=== PATIENT | female | born 1975 | race African-American/Black ===

== ENCOUNTER 2019-04-23 15:32 | Inpatient (IN) | payer MEDICAID ==
[~2019-04-23] VITALS: Ht 177.8 cm; Wt 135.2 kg
[~2019-04-23 15:32] MED LIST: GABA100C
[2019-04-23] MEDS ORDERED: IPRATROPIUM BROMIDE (0.02%) 0.5MG/2.5ML NEB HHN STA (15:51)
[2019-04-23] MEDS ORDERED: ALBUTEROL (0.083%) 2.5MG/3ML NEB HHN STA (15:51)
[2019-04-23] MEDS ORDERED: NITROGLYCERIN OINT 1GM/INCH UDPKT TD ONE (16:00)
[2019-04-23] MEDS ORDERED: FUROSEMIDE 40MG/4ML VIAL IV ONE (16:00)
[2019-04-23] MEDS ORDERED: ASPIRIN 81MG TABLET PO ONE (16:00)
[2019-04-23 16:23] LABS: BASOPHILS % 0.6 % (0.0-2.0); EOSINOPHILS % 3.9 % (0.0-5.0); HEMATOCRIT. 34.1 % (36.0-48.0); HEMOGLOBIN. 11.5 g/dL (12.0-16.0); LYMPHOCYTES % 22.3 % (20.0-50.0); MEAN CORPUSCULAR HEMOGLOBIN 27.4 pg (28.0-32.0); MEAN CORPUSCULAR VOLUME 81.3 fL (81.0-99.0); MEAN PLATELET VOLUME 8.7 fl (7.4-10.4); MONOCYTES % 6.6 % (2.0-8.0); NEUTROPHILS % 66.6 % (40.0-76.0); PLATELET 193 x1000/uL (130-400); RED CELL DISTRIBUTION WIDTH 17.5 % (11.6-14.6)
[2019-04-23 16:26] LABS: HCG SCREEN NEGATIVE
[2019-04-23 16:28] LABS: CHLORIDE 106 mEq/L (98-107)
[2019-04-23 16:29] LABS: CLARITY URINE CLOUDY (CLEAR); COLOR URINE YELLOW (YELLOW); KETONES URINE NEGATIVE (NEGATIVE); LEUKOCYTE ESTERASE URINE 1+ (NEGATIVE); NITRITE URINE NEGATIVE (NEGATIVE); OCCULT BLOOD URINE 1+ (NEGATIVE); PROTEIN URINE NEGATIVE (NEGATIVE); SPECIFIC GRAVITY URINE 1.015 (1.005-1.030); UROBILINOGEN URINE 0.2 E.U./dL (0.2-1.0)
[2019-04-23 16:32] LABS: ETHANOL BLOOD < 10 mg/dL
[2019-04-23 16:58] LABS: *BARBITURATES SCREEN URINE NEGATIVE (NEGATIVE); *BENZODIAZEPINES SCREEN URINE NEGATIVE (NEGATIVE)
[2019-04-23 16:59] LABS: *AMPHETAMINES SCREEN URINE PRESUMTIVE POSITIVE (NEGATIVE); *COCAINE SCREEN URINE PRESUMTIVE POSITIVE (NEGATIVE); CANNABINOID URINE SCREEN NEGATIVE (NEGATIVE); METHADONE URINE SCREEN NEGATIVE (NEGATIVE); OPIATES URINE SCREEN NEGATIVE (NEGATIVE); PHENCYCLIDINE URINE SCREEN NEGATIVE (NEGATIVE)
[2019-04-23] MEDS ORDERED: CEFTRIAXONE 1 G PREMIX 50 ML IV ONE (17:00)
[2019-04-23] MEDS ORDERED: MAGNESIUM/ALUMINUM HYDROXIDE/SIMETHICONE 30ML UDC PO PRN (18:15)
[2019-04-23] MEDS ORDERED: CLONIDINE 0.1MG TABLET PO PRN (18:15)
[2019-04-23] MEDS ORDERED: ONDANSETRON HCL 4MG/2ML INJ IV PRN (18:15)
[2019-04-23] MEDS ORDERED: DIPHENHYDRAMINE 50MG/ML VIAL IV PRN (18:15)
[2019-04-23] MEDS ORDERED: CEFTRIAXONE 1 G PREMIX 50 ML IV SCH (18:15)
[2019-04-23] MEDS ORDERED: GUAIFENESIN 200MG/10ML SUGAR FREE UDC PO PRN (18:15)
[2019-04-23] MEDS ORDERED: ACETAMINOPHEN 325MG TABLET PO PRN (18:15)
[2019-04-23] MEDS ORDERED: ENOXAPARIN 40MG/0.4ML SYR SUBCUT SCH (18:15)
[2019-04-23] MEDS ORDERED: DOCUSATE SODIUM 100MG CAPSULE PO PRN (18:15)
[2019-04-23] MEDS ORDERED: HYDROCODONE/ACETAMINOPHEN 5/325MG TABLET PO PRN (18:15)
[2019-04-23 18:45] LABS: PHOSPHORUS 3.4 mg/dL (2.5-4.9)
[2019-04-23 20:00] VITALS: BP 135/79
[2019-04-23 20:30] VITALS: BP 135/79
[2019-04-23] MEDS: ENOXAPARIN 30MG/0.3ML SYR SUBCUT SCH (21:14)
[2019-04-23] MEDS: IPRATROPIUM/ALBUTEROL 0.5-3(2.5)MG/3ML NEB HHN PRN (22:46)
[2019-04-24] VITALS (11 sets, daily range): BP systolic 106–153; BP diastolic 59–109
[2019-04-24 06:46] LABS: BASOPHILS % 0.5 % (0.0-2.0); EOSINOPHILS % 4.4 % (0.0-5.0); HEMATOCRIT. 32.6 % (36.0-48.0); HEMOGLOBIN. 11.1 g/dL (12.0-16.0); LYMPHOCYTES % 25.2 % (20.0-50.0); MEAN CORPUSCULAR HEMOGLOBIN 27.1 pg (28.0-32.0); MONOCYTES % 7.7 % (2.0-8.0); NEUTROPHILS % 62.2 % (40.0-76.0); PLATELET 184 x1000/uL (130-400); RED BLOOD CELL COUNT 4.08 mill/uL (4.2-5.4); RED CELL DISTRIBUTION WIDTH 17.2 % (11.6-14.6)
[2019-04-24 07:07] LABS: CHLORIDE 105 mEq/L (98-107)
[2019-04-24 07:14] LABS: LDL CHOLESTEROL 78 mg/dL (5-100)
[2019-04-24 07:16] LABS: HDL CHOLESTEROL 52 mg/dL (40-59)
[2019-04-24] MEDS: ENOXAPARIN 30MG/0.3ML SYR SUBCUT SCH ×2 (08:30→20:12)
[2019-04-24] MEDS: IPRATROPIUM/ALBUTEROL 0.5-3(2.5)MG/3ML NEB HHN PRN (11:09)
[2019-04-24] MEDS ORDERED: CEFTRIAXONE 1 G PREMIX 50 ML IV SCH (11:15)
[2019-04-24] MEDS ORDERED: METHYLPREDNISOLONE SOD SUCC 125 MG/2 ML VIAL IV NR (11:15)
[2019-04-24] MEDS: FUROSEMIDE 40MG/4ML VIAL IVP SCH ×2 (11:20→16:50)
[2019-04-24] MEDS ORDERED: IPRATROPIUM/ALBUTEROL 0.5-3(2.5)MG/3ML NEB HHN SCH (12:00)
[2019-04-24] MEDS ORDERED: POTASSIUM CHLORIDE INJ 40 MEQ in DEXT 5% WATER 500 ML IV NR (12:00)
[2019-04-24] MEDS ORDERED: MAGNESIUM 2 G PREMIX 50 ML IV NR (12:00)
[2019-04-24] MEDS: DILTIAZEM HCL 30MG TABLET PO SCH ×3 (12:18→23:54)
[2019-04-24] MEDS: METHYLPREDNISOLONE SOD SUCC 125 MG/2 ML VIAL IV SCH ×4 (12:18→23:55)
[2019-04-24] MEDS: AZITHROMYCIN 500 MG in DEXT 5% WATER 250 ML IV SCH (12:41)
[2019-04-24 12:57] LABS: BG BASE EXCESS 3.2 mmol/L (-2.0-2.0); BG CARBOXYHEMOGLOBIN 0.3 % (0.5-1.5); BG DEOXYHEMOGLOBIN 1.6 % (0.0-5.0); BG FRACTION INSPIRED OXYGEN 36; BG HCO3 ACT 26.3 mmol/L (22.0-26.0); BG METHEMOGLOBIN 0.1 % (0.0-1.5); BG OXYGEN SATURATION 98.4 % (92.0-98.5); BG PH 7.494 (7.350-7.450); BG PO2 122.7 mmHg (75.0-100.0); BG SAMPLE SITE RIGHT RADIAL; BG TOTAL HEMOGLOBIN 12.6 g/dL (12.0-18.0); BG VENT MODE NASAL CANNULA
[2019-04-24] MEDS: IPRATROPIUM/ALBUTEROL 0.5-3(2.5)MG/3ML NEB HHN SCH ×3 (13:22→20:44)
[2019-04-24] MEDS: FLUTICASONE PROPIONATE 50MCG/SPRAY BOTTLE BOTHNSTRLS SCH ×2 (15:00→21:36)
[2019-04-24 15:44] LABS: D-DIMER 0.5 mg/L FEU (<0.50); PARTIAL THROMBOPLASTIN TIME 29.9 sec (23.4-31.0); PROTHROMBIN TIME 10.4 sec (9.6-11.0)
[2019-04-24] MEDS: FAMOTIDINE 20MG TABLET PO SCH (20:11)
[2019-04-24] MEDS: BUDESONIDE 0.5MG/2ML NEB HHN SCH (20:44)
[2019-04-24] MEDS: CEFTRIAXONE 1 G PREMIX 50 ML IV SCH (21:36)
[2019-04-25] VITALS (11 sets, daily range): BP systolic 127–156; BP diastolic 64–101
[2019-04-25] MEDS: IPRATROPIUM/ALBUTEROL 0.5-3(2.5)MG/3ML NEB HHN SCH ×6 (00:46→21:33)
[2019-04-25] MEDS: DILTIAZEM HCL 30MG TABLET PO SCH ×2 (05:04→11:31)
[2019-04-25] MEDS: METHYLPREDNISOLONE SOD SUCC 125 MG/2 ML VIAL IV SCH ×4 (05:04→23:34)
[2019-04-25 07:05] LABS: HEMATOCRIT. 37.9 % (36.0-48.0); HEMOGLOBIN. 12.8 g/dL (12.0-16.0); MEAN CORPUSCULAR HEMOGLOBIN 27.2 pg (28.0-32.0); MEAN CORPUSCULAR VOLUME 80.3 fL (81.0-99.0); MEAN PLATELET VOLUME 9.1 fl (7.4-10.4); PLATELET 215 x1000/uL (130-400); RED BLOOD CELL COUNT 4.71 mill/uL (4.2-5.4); RED CELL DISTRIBUTION WIDTH 17.3 % (11.6-14.6)
[2019-04-25 07:44] LABS: CHLORIDE 101 mEq/L (98-107)
[2019-04-25 07:51] LABS: TOTAL IRON BINDING CAPACITY 393 ug/dL (250-450)
[2019-04-25] MEDS: ENOXAPARIN 30MG/0.3ML SYR SUBCUT SCH (08:00)
[2019-04-25] MEDS: FUROSEMIDE 40MG/4ML VIAL IVP SCH ×2 (08:00→17:15)
[2019-04-25] MEDS: FAMOTIDINE 20MG TABLET PO SCH ×2 (08:00→21:30)
[2019-04-25] MEDS: FLUTICASONE PROPIONATE 50MCG/SPRAY BOTTLE BOTHNSTRLS SCH ×2 (08:02→21:29)
[2019-04-25] MEDS: BUDESONIDE 0.5MG/2ML NEB HHN SCH ×2 (09:03→21:30)
[2019-04-25] MEDS ORDERED: POTASSIUM CHLORIDE 20MEQ TABLET SR PO NR (10:00)
[2019-04-25 11:14] LABS: PLATELET ESTIMATE NORMAL
[2019-04-25] MEDS: AZITHROMYCIN 500 MG in DEXT 5% WATER 250 ML IV SCH (12:24)
[2019-04-25] MEDS: DILTIAZEM HCL 60MG TABLET PO SCH ×3 (14:32→21:31)
[2019-04-25] MEDS: CEFTRIAXONE 1 G PREMIX 50 ML IV SCH (17:00)
[2019-04-25] MEDS: ENOXAPARIN 40MG/0.4ML SYR SUBCUT SCH (21:30)
[2019-04-26] VITALS: BP 147/86
[2019-04-26] MEDS: IPRATROPIUM/ALBUTEROL 0.5-3(2.5)MG/3ML NEB HHN SCH ×4 (00:58→11:54)
[2019-04-26 04:00] VITALS: BP 133/76
[2019-04-26] MEDS: METHYLPREDNISOLONE SOD SUCC 125 MG/2 ML VIAL IV SCH ×2 (06:01→11:59)
[2019-04-26] MEDS: DILTIAZEM HCL 60MG TABLET PO SCH (06:06)
[2019-04-26] MEDS: FUROSEMIDE 40MG/4ML VIAL IVP SCH (06:15)
[2019-04-26] MEDS: BUDESONIDE 0.5MG/2ML NEB HHN SCH (07:34)
[2019-04-26 08:00] VITALS: BP 112/48
[2019-04-26] MEDS: FLUTICASONE PROPIONATE 50MCG/SPRAY BOTTLE BOTHNSTRLS SCH (08:31)
[2019-04-26] MEDS: FAMOTIDINE 20MG TABLET PO SCH (08:31)
[2019-04-26] MEDS: ENOXAPARIN 40MG/0.4ML SYR SUBCUT SCH (08:32)
[2019-04-26] MEDS ORDERED: AZITHROMYCIN 500 MG TABLET PO SCH (09:00)
[2019-04-26] MEDS ORDERED: AMLODIPINE 5MG TABLET PO SCH (11:00)
[2019-04-26 12:00] VITALS: BP 145/105
== END 2019-04-26 13:58 | disposition left against medical advice (07) | DRG 816 ==
LOC: ER 15:32 → 5WST 17:57 → EDBEDREQ 17:58 → EDBEDREQTM 17:58 → ENRESERV 19:38 → 3WST 04-24 12:27 → 5WST 04-25 12:00
PROVIDERS: ADMIT Internal Medicine; ATTEND Internal Medicine
DX: T40.5X1A Poisoning by cocaine, accidental (unintentional), initial encounter (principal); J96.00 Acute respiratory failure, unspecified whether with hypoxia or hypercapnia; I50.41 Acute combined systolic (congestive) and diastolic (congestive) heart failure; E66.01 Morbid (severe) obesity due to excess calories; E83.42 Hypomagnesemia; I42.9 Cardiomyopathy, unspecified; J44.1 Chronic obstructive pulmonary disease with (acute) exacerbation; J45.901 Unspecified asthma with (acute) exacerbation; J68.0 Bronchitis and pneumonitis due to chemicals, gases, fumes and vapors; F17.210 Nicotine dependence, cigarettes, uncomplicated; Z53.21 Procedure and treatment not carried out due to patient leaving prior to being seen by health care provider; J31.0 Chronic rhinitis; I11.0 Hypertensive heart disease with heart failure; N39.0 Urinary tract infection, site not specified; D50.9 Iron deficiency anemia, unspecified; E87.6 Hypokalemia; F14.10 Cocaine abuse, uncomplicated; F15.10 Other stimulant abuse, uncomplicated; Z68.41 Body mass index [BMI] 40.0-44.9, adult; Z79.899 Other long term (current) drug therapy; Z71.6 Tobacco abuse counseling; Y92.89 Other specified places as the place of occurrence of the external cause; Z71.51 Drug abuse counseling and surveillance of drug abuser
CPT/HCPCS: 36415; 36600; 71045; 80048; 80061; 80305; 80320; 81003; 82375; 82728; 82805; 83540; 83550; 83735; 83880; 84100; 84443; 84484; 84703; 85379; 93005; 93306; 93970; 94640; 99291; C1893; J0456; J0696; J1650; J1940; J2930; J3475; J3480; J7060; J7611; J7620; J7626; G0480

== ENCOUNTER 2019-04-26 16:16 | Inpatient (IN) | payer MEDICAID ==
[~2019-04-26] VITALS: Ht 177.8 cm; Wt 131.5 kg
[2019-04-26] MEDS ORDERED: MORPHINE SULFATE 4 MG/ML CPJ (NOT FOR IM USE) IV STA (17:08)
[2019-04-26] MEDS ORDERED: ONDANSETRON HCL 4MG/2ML INJ IV STA (17:08)
[2019-04-26] MEDS ORDERED: ASPIRIN 81MG TABLET PO ONE (17:15)
[2019-04-26] MEDS ORDERED: NITROGLYCERIN OINT 1GM/INCH UDPKT TD ONE (17:15)
[2019-04-26 17:19] LABS: HEMATOCRIT. 38.6 % (36.0-48.0); HEMOGLOBIN. 12.8 g/dL (12.0-16.0); MEAN CORPUSCULAR HEMOGLOBIN 26.7 pg (28.0-32.0); MEAN CORPUSCULAR VOLUME 80.8 fL (81.0-99.0); MEAN PLATELET VOLUME 8.8 fl (7.4-10.4); PLATELET 234 x1000/uL (130-400); RED BLOOD CELL COUNT 4.78 mill/uL (4.2-5.4); RED CELL DISTRIBUTION WIDTH 17.5 % (11.6-14.6)
[2019-04-26 17:24] LABS: CHLORIDE 102 mEq/L (98-107)
[2019-04-26 17:37] LABS: PLATELET ESTIMATE NORMAL
[2019-04-26] MEDS ORDERED: FUROSEMIDE 40MG/4ML VIAL IVP ONE (18:15)
[2019-04-26 19:42] LABS: *BARBITURATES SCREEN URINE NEGATIVE (NEGATIVE)
[2019-04-26 19:43] LABS: *AMPHETAMINES SCREEN URINE NEGATIVE (NEGATIVE); *BENZODIAZEPINES SCREEN URINE NEGATIVE (NEGATIVE); *COCAINE SCREEN URINE NEGATIVE (NEGATIVE); CANNABINOID URINE SCREEN NEGATIVE (NEGATIVE); METHADONE URINE SCREEN NEGATIVE (NEGATIVE); OPIATES URINE SCREEN NEGATIVE (NEGATIVE); PHENCYCLIDINE URINE SCREEN NEGATIVE (NEGATIVE)
[2019-04-26] MEDS ORDERED: CLONIDINE 0.1MG TABLET PO PRN (21:30)
[2019-04-26] MEDS ORDERED: ACETAMINOPHEN 325MG TABLET PO PRN ×2 (21:30)
[2019-04-26] MEDS ORDERED: IPRATROPIUM/ALBUTEROL 0.5-3(2.5)MG/3ML NEB NEB PRN (21:30)
[2019-04-26] MEDS ORDERED: ONDANSETRON HCL 4MG/2ML INJ IV PRN (21:30)
[2019-04-26 23:00] VITALS: BP 145/102
[2019-04-26] MEDS ORDERED: DEXTROSE 50% WATER 50ML SYRINGE IV PRN (23:45)
[2019-04-27] VITALS: BP 130/77
[2019-04-27 00:59] LABS: CLARITY URINE CLEAR (CLEAR); COLOR URINE YELLOW (YELLOW); KETONES URINE NEGATIVE (NEGATIVE); LEUKOCYTE ESTERASE URINE 1+ (NEGATIVE); NITRITE URINE NEGATIVE (NEGATIVE); OCCULT BLOOD URINE TRACE (NEGATIVE); PROTEIN URINE NEGATIVE (NEGATIVE); SPECIFIC GRAVITY URINE 1.019 (1.005-1.030); UROBILINOGEN URINE 0.2 E.U./dL (0.2-1.0)
[2019-04-27 04:00] VITALS: BP 117/57
[2019-04-27] MEDS: BLOOD SUGAR DIAGNOSTIC STRIP TEST SCH ×4 (06:21→21:00)
[2019-04-27] MEDS: INSULIN LISPRO 100 UNITS/ML SUBCUT SCH ×4 (06:22→21:00)
[2019-04-27 07:20] LABS: CHLORIDE 102 mEq/L (98-107)
[2019-04-27 07:28] LABS: HEMATOCRIT. 36.1 % (36.0-48.0); MEAN CORPUSCULAR HEMOGLOBIN 26.6 pg (28.0-32.0); MEAN CORPUSCULAR VOLUME 79.8 fL (81.0-99.0); MEAN PLATELET VOLUME 9.1 fl (7.4-10.4); PLATELET 220 x1000/uL (130-400); RED BLOOD CELL COUNT 4.52 mill/uL (4.2-5.4); RED CELL DISTRIBUTION WIDTH 17.2 % (11.6-14.6)
[2019-04-27 08:00] VITALS: BP 112/61
[2019-04-27] MEDS: FUROSEMIDE 40MG/4ML VIAL IVP SCH (08:49)
[2019-04-27] MEDS ORDERED: ENOXAPARIN 30MG/0.3ML SYR SUBCUT SCH (09:00)
[2019-04-27 12:00] VITALS: BP 117/77
[2019-04-27 16:00] VITALS: BP 137/84
[2019-04-27 20:00] VITALS: BP 135/82
[2019-04-27 20:35] LABS: PLATELET ESTIMATE NORMAL
[2019-04-27] MEDS: ENOXAPARIN 40MG/0.4ML SYR SUBCUT SCH (21:59)
[2019-04-27] MEDS ORDERED: CEFTRIAXONE 1 G PREMIX 50 ML IV SCH (22:00)
[2019-04-28] VITALS: BP 137/85
[2019-04-28 04:00] VITALS: BP 135/94
[2019-04-28] MEDS: INSULIN LISPRO 100 UNITS/ML SUBCUT SCH ×2 (06:45→12:14)
[2019-04-28] MEDS: BLOOD SUGAR DIAGNOSTIC STRIP TEST SCH ×2 (06:45→11:45)
[2019-04-28 08:00] VITALS: BP 108/60
[2019-04-28] MEDS: ENOXAPARIN 40MG/0.4ML SYR SUBCUT SCH (08:50)
[2019-04-28] MEDS: FUROSEMIDE 40MG/4ML VIAL IVP SCH (08:50)
[2019-04-28 12:00] VITALS: BP 106/55
[2019-04-28 14:35] VITALS: BP 106/55
== END 2019-04-28 16:15 | disposition home or self-care (01) | DRG 720 ==
LOC: ER 16:16 → 5WST 17:42 → EDBEDREQ 17:48 → ENRESERV 20:49
PROVIDERS: ADMIT Internal Medicine; ATTEND Internal Medicine
DX: A41.9 Sepsis, unspecified organism (principal); I50.23 Acute on chronic systolic (congestive) heart failure; F17.200 Nicotine dependence, unspecified, uncomplicated; I11.0 Hypertensive heart disease with heart failure; N39.0 Urinary tract infection, site not specified; J44.9 Chronic obstructive pulmonary disease, unspecified; Z90.710 Acquired absence of both cervix and uterus; Z90.49 Acquired absence of other specified parts of digestive tract; Z68.41 Body mass index [BMI] 40.0-44.9, adult
CPT/HCPCS: 36415; 71045; 80048; 80305; 81003; 82962; 83735; 83880; 84484; 93005; 93970; 99285; J0696; J1650; J1940; J2270; J2405; J7040

== ENCOUNTER 2019-05-04 09:31 | Inpatient (IN) | payer MEDICAID ==
[~2019-05-04] VITALS: Ht 175.3 cm; Wt 129.3 kg
[2019-05-04] MEDS ORDERED: IBUPROFEN 800MG TABLET PO ONE (10:00)
[2019-05-04] MEDS ORDERED: ALBUTEROL (0.5%) 2.5MG/0.5ML NEB HHN ONE (10:00)
[2019-05-04] MEDS ORDERED: METHYLPREDNISOLONE SOD SUCC 125 MG/2 ML VIAL IV STA (10:01)
[2019-05-04] MEDS ORDERED: ALBUTEROL (0.083%) 2.5MG/3ML NEB HHN STA (10:01)
[2019-05-04] MEDS ORDERED: MAGNESIUM 2 G PREMIX 50 ML IV STA (10:01)
[2019-05-04] MEDS ORDERED: IPRATROPIUM BROMIDE (0.02%) 0.5MG/2.5ML NEB HHN STA (10:01)
[2019-05-04 12:43] LABS: HEMATOCRIT. 34.8 % (36.0-48.0); HEMOGLOBIN. 11.7 g/dL (12.0-16.0); MEAN CORPUSCULAR HEMOGLOBIN 26.9 pg (28.0-32.0); MEAN CORPUSCULAR VOLUME 80.4 fL (81.0-99.0); MEAN PLATELET VOLUME 8.4 fl (7.4-10.4); PLATELET 156 x1000/uL (130-400); RED BLOOD CELL COUNT 4.33 mill/uL (4.2-5.4); RED CELL DISTRIBUTION WIDTH 16.8 % (11.6-14.6)
[2019-05-04 12:50] LABS: CHLORIDE 106 mEq/L (98-107)
[2019-05-04 13:12] LABS: PLATELET ESTIMATE NORMAL
[2019-05-04] MEDS ORDERED: FUROSEMIDE 40MG/4ML VIAL IVP ONE (13:45)
[2019-05-04] MEDS ORDERED: POTASSIUM CHLORIDE 20MEQ TABLET SR PO ONE (13:45)
[2019-05-04] MEDS ORDERED: DIPHENHYDRAMINE 50MG/ML VIAL IV PRN (14:00)
[2019-05-04] MEDS ORDERED: CLONIDINE 0.1MG TABLET PO PRN (14:00)
[2019-05-04] MEDS ORDERED: MAGNESIUM/ALUMINUM HYDROXIDE/SIMETHICONE 30ML UDC PO PRN (14:00)
[2019-05-04] MEDS ORDERED: ENOXAPARIN 40MG/0.4ML SYR SUBCUT SCH (14:00)
[2019-05-04] MEDS ORDERED: ONDANSETRON HCL 4MG/2ML INJ IV PRN (14:00)
[2019-05-04] MEDS ORDERED: ACETAMINOPHEN 325MG TABLET PO PRN (14:00)
[2019-05-04] MEDS ORDERED: IPRATROPIUM/ALBUTEROL 0.5-3(2.5)MG/3ML NEB HHN PRN (14:00)
[2019-05-04] MEDS ORDERED: DOCUSATE SODIUM 100MG CAPSULE PO PRN (14:00)
[2019-05-04 14:46] LABS: PHOSPHORUS 2.5 mg/dL (2.5-4.9)
[2019-05-04 17:01] LABS: BG BASE EXCESS -5.4 mmol/L (-2.0-2.0); BG CARBOXYHEMOGLOBIN 0.8 % (0.5-1.5); BG DEOXYHEMOGLOBIN 17.5 % (0.0-5.0); BG FRACTION INSPIRED OXYGEN 21; BG HCO3 ACT 19.8 mmol/L (22.0-26.0); BG METHEMOGLOBIN 0.2 % (0.0-1.5); BG OXYGEN SATURATION 82.3 % (92.0-98.5); BG OXYHEMOGLOBIN 81.5 % (94.0-97.0); BG PCO2 37.4 mmHg (35.0-45.0); BG PH 7.341 (7.350-7.450); BG PO2 44.4 mmHg (75.0-100.0); BG SAMPLE SITE RIGHT RADIAL; BG VENT MODE ROOM AIR
[2019-05-04] MEDS: IPRATROPIUM/ALBUTEROL 0.5-3(2.5)MG/3ML NEB HHN SCH (20:25)
[2019-05-04] MEDS ORDERED: METHYLPREDNISOLONE SOD SUCC 40 MG/ML VIAL IV NR (20:34)
[2019-05-04 21:30] VITALS: BP 140/87
[2019-05-04 22:30] VITALS: BP 140/87
[2019-05-04] MEDS: GUAIFENESIN 600MG ER TABLET PO SCH (23:00)
[2019-05-04] MEDS: GUAIFENESIN 200MG/10ML SUGAR FREE UDC PO PRN (23:00)
[2019-05-05] VITALS: BP 116/63
[2019-05-05] MEDS: IPRATROPIUM/ALBUTEROL 0.5-3(2.5)MG/3ML NEB HHN SCH ×6 (01:16→20:25)
[2019-05-05 04:00] VITALS: BP 154/88
[2019-05-05] MEDS: METHYLPREDNISOLONE SOD SUCC 40 MG/ML VIAL IV SCH ×3 (05:32→20:42)
[2019-05-05 07:38] LABS: HEMATOCRIT. 34.6 % (36.0-48.0); HEMOGLOBIN. 11.4 g/dL (12.0-16.0); MEAN CORPUSCULAR HEMOGLOBIN 26.8 pg (28.0-32.0); MEAN CORPUSCULAR VOLUME 81.1 fL (81.0-99.0); MEAN PLATELET VOLUME 9.3 fl (7.4-10.4); PLATELET 168 x1000/uL (130-400); RED BLOOD CELL COUNT 4.26 mill/uL (4.2-5.4); RED CELL DISTRIBUTION WIDTH 17.2 % (11.6-14.6)
[2019-05-05 08:01] LABS: CHLORIDE 107 mEq/L (98-107)
[2019-05-05] MEDS: GUAIFENESIN 600MG ER TABLET PO SCH ×2 (11:00→20:42)
[2019-05-05] MEDS: FUROSEMIDE 40MG/4ML VIAL IVP SCH (11:00)
[2019-05-05] MEDS: ENOXAPARIN 30MG/0.3ML SYR SUBCUT SCH ×2 (11:01→20:42)
[2019-05-05 12:39] LABS: CLARITY URINE CLEAR (CLEAR); COLOR URINE YELLOW (YELLOW); KETONES URINE NEGATIVE (NEGATIVE); LEUKOCYTE ESTERASE URINE 1+ (NEGATIVE); NITRITE URINE NEGATIVE (NEGATIVE); OCCULT BLOOD URINE TRACE (NEGATIVE); PH URINE 5.5 (4.5-8.0); PROTEIN URINE NEGATIVE (NEGATIVE); SPECIFIC GRAVITY URINE 1.018 (1.005-1.030)
[2019-05-05 13:12] LABS: *AMPHETAMINES SCREEN URINE NEGATIVE (NEGATIVE); *BARBITURATES SCREEN URINE NEGATIVE (NEGATIVE); *BENZODIAZEPINES SCREEN URINE NEGATIVE (NEGATIVE); METHADONE URINE SCREEN NEGATIVE (NEGATIVE); OPIATES URINE SCREEN NEGATIVE (NEGATIVE)
[2019-05-05 13:13] LABS: *COCAINE SCREEN URINE PRESUMTIVE POSITIVE (NEGATIVE); CANNABINOID URINE SCREEN NEGATIVE (NEGATIVE); PHENCYCLIDINE URINE SCREEN NEGATIVE (NEGATIVE)
[2019-05-05] MEDS: GUAIFENESIN 200MG/10ML SUGAR FREE UDC PO PRN ×2 (14:32→20:42)
[2019-05-05 20:00] VITALS: BP 132/99
[2019-05-06] VITALS: BP 147/95
[2019-05-06] MEDS: IPRATROPIUM/ALBUTEROL 0.5-3(2.5)MG/3ML NEB HHN SCH ×4 (00:28→12:41)
[2019-05-06] MEDS: METHYLPREDNISOLONE SOD SUCC 40 MG/ML VIAL IV SCH ×2 (05:58→14:16)
[2019-05-06] MEDS: FUROSEMIDE 40MG/4ML VIAL IVP SCH (08:57)
[2019-05-06] MEDS: ENOXAPARIN 30MG/0.3ML SYR SUBCUT SCH (08:57)
[2019-05-06] MEDS: GUAIFENESIN 600MG ER TABLET PO SCH (08:57)
[2019-05-06 09:27] LABS: HEMATOCRIT. 37.1 % (36.0-48.0); HEMOGLOBIN. 12.4 g/dL (12.0-16.0); MEAN CORPUSCULAR HEMOGLOBIN 26.7 pg (28.0-32.0); MEAN CORPUSCULAR VOLUME 79.7 fL (81.0-99.0); MEAN PLATELET VOLUME 8.9 fl (7.4-10.4); PLATELET 185 x1000/uL (130-400); RED BLOOD CELL COUNT 4.65 mill/uL (4.2-5.4); RED CELL DISTRIBUTION WIDTH 17.6 % (11.6-14.6)
[2019-05-06 09:56] LABS: CHLORIDE 105 mEq/L (98-107)
[2019-05-06] MEDS: GUAIFENESIN 200MG/10ML SUGAR FREE UDC PO PRN (10:06)
[2019-05-06 15:11] LABS: PLATELET ESTIMATE NORMAL
[2019-05-06 15:35] LABS: PLATELET ESTIMATE NORMAL
== END 2019-05-06 16:49 | disposition home or self-care (01) | DRG 133 ==
LOC: ER 09:31 → 7WST 11:48 → EDBEDREQ 11:51 → EDBEDREQTM 11:51 → ENRESERV 20:42
PROVIDERS: ADMIT Internal Medicine; ATTEND Internal Medicine
DX: J96.00 Acute respiratory failure, unspecified whether with hypoxia or hypercapnia (principal); J68.0 Bronchitis and pneumonitis due to chemicals, gases, fumes and vapors; J45.901 Unspecified asthma with (acute) exacerbation; E83.42 Hypomagnesemia; I11.0 Hypertensive heart disease with heart failure; I50.40 Unspecified combined systolic (congestive) and diastolic (congestive) heart failure; D50.9 Iron deficiency anemia, unspecified; R73.9 Hyperglycemia, unspecified; E87.6 Hypokalemia; J31.0 Chronic rhinitis; F17.210 Nicotine dependence, cigarettes, uncomplicated; Z90.710 Acquired absence of both cervix and uterus; Z90.49 Acquired absence of other specified parts of digestive tract; Z98.891 History of uterine scar from previous surgery; Z79.899 Other long term (current) drug therapy
CPT/HCPCS: 36415; 36600; 71045; 80048; 80305; 81003; 82375; 82805; 83735; 83880; 84100; 84484; 93005; 93970; 96374; 99285; J1650; J1940; J2920; J2930; J3475; J7611; J7620

== ENCOUNTER 2019-06-11 07:32 | Emergency (ER) | payer MEDICAID ==
[~2019-06-11] VITALS: Ht 162.6 cm; Wt 1174.0 kg
[2019-06-11] MEDS ORDERED: ASPIRIN 81MG TABLET PO ONE (08:00)
[2019-06-11 09:02] LABS: CLARITY URINE CLEAR (CLEAR); COLOR URINE YELLOW (YELLOW); KETONES URINE TRACE (NEGATIVE); LEUKOCYTE ESTERASE URINE 1+ (NEGATIVE); NITRITE URINE NEGATIVE (NEGATIVE); OCCULT BLOOD URINE 1+ (NEGATIVE); PROTEIN URINE NEGATIVE (NEGATIVE)
[2019-06-11 09:19] LABS: BASOPHILS % 0.2 % (0.0-2.0); HEMATOCRIT. 36.6 % (36.0-48.0); HEMOGLOBIN. 12.4 g/dL (12.0-16.0); LYMPHOCYTES % 17.7 % (20.0-50.0); MEAN CORPUSCULAR HEMOGLOBIN 27.1 pg (28.0-32.0); MEAN CORPUSCULAR VOLUME 79.9 fL (81.0-99.0); MEAN PLATELET VOLUME 8.4 fl (7.4-10.4); MONOCYTES % 6.8 % (2.0-8.0); NEUTROPHILS % 72.3 % (40.0-76.0); PLATELET 205 x1000/uL (130-400); RED BLOOD CELL COUNT 4.58 mill/uL (4.2-5.4); RED CELL DISTRIBUTION WIDTH 18.3 % (11.6-14.6)
[2019-06-11 09:25] LABS: CHLORIDE 104 mEq/L (98-107)
[2019-06-11 09:28] LABS: PARTIAL THROMBOPLASTIN TIME 28.5 sec (23.4-31.0); PROTHROMBIN TIME 10.4 sec (9.6-11.0)
[2019-06-11 13:14] VITALS: BP 141/84
== END 2019-06-11 13:16 | disposition home or self-care (01) ==
LOC: ER 07:32
DX: R07.9 Chest pain, unspecified (principal); M25.562 Pain in left knee; M25.561 Pain in right knee; W19.XXXA Unspecified fall, initial encounter; Y93.89 Activity, other specified; Y92.89 Other specified places as the place of occurrence of the external cause; Y99.8 Other external cause status
CPT/HCPCS: 36415; 71045; 80053; 81003; 84484; 85025; 85610; 85730; 93005; 99284; Z7610

== ENCOUNTER 2019-08-18 07:40 | Emergency (ER) | payer MEDICAID ==
[~2019-08-18] VITALS: Ht 167.6 cm; Wt 118.0 kg
[2019-08-18] MEDS ORDERED: KETOROLAC 30MG/ML VIAL IV STA (07:50)
[2019-08-18] MEDS ORDERED: SODIUM CHLORIDE 0.9% 1,000 ML IV ONE (07:50)
[2019-08-18] MEDS ORDERED: OLANZAPINE 5MG TABLET ODT PO ONE (08:30)
[2019-08-18] MEDS ORDERED: LORAZEPAM 1MG TABLET PO ONE (08:30)
[2019-08-18 08:34] LABS: BASOPHILS % 0.6 % (0.0-2.0); EOSINOPHILS % 4.9 % (0.0-5.0); HEMATOCRIT. 34.6 % (36.0-48.0); LYMPHOCYTES % 23.8 % (20.0-50.0); MEAN CORPUSCULAR HEMOGLOBIN 27.8 pg (28.0-32.0); MEAN CORPUSCULAR VOLUME 80.3 fL (81.0-99.0); MEAN PLATELET VOLUME 8.1 fl (7.4-10.4); MONOCYTES % 6.9 % (2.0-8.0); NEUTROPHILS % 63.8 % (40.0-76.0); PLATELET 175 x1000/uL (130-400); RED BLOOD CELL COUNT 4.31 mill/uL (4.2-5.4); RED CELL DISTRIBUTION WIDTH 18.1 % (11.6-14.6)
[2019-08-18 08:40] LABS: CHLORIDE 103 mEq/L (98-107)
[2019-08-18 08:44] LABS: ETHANOL BLOOD < 10 mg/dL
[2019-08-18 08:51] LABS: HCG SCREEN NEGATIVE
[2019-08-18 11:34] LABS: CLARITY URINE CLEAR (CLEAR); COLOR URINE YELLOW (YELLOW); KETONES URINE NEGATIVE (NEGATIVE); LEUKOCYTE ESTERASE URINE TRACE (NEGATIVE); NITRITE URINE NEGATIVE (NEGATIVE); OCCULT BLOOD URINE TRACE (NEGATIVE); PROTEIN URINE NEGATIVE (NEGATIVE)
[2019-08-18 12:06] LABS: *AMPHETAMINES SCREEN URINE NEGATIVE (NEGATIVE); *BARBITURATES SCREEN URINE NEGATIVE (NEGATIVE); *BENZODIAZEPINES SCREEN URINE NEGATIVE (NEGATIVE)
[2019-08-18 12:07] LABS: CANNABINOID URINE SCREEN NEGATIVE (NEGATIVE); METHADONE URINE SCREEN NEGATIVE (NEGATIVE); OPIATES URINE SCREEN NEGATIVE (NEGATIVE); PHENCYCLIDINE URINE SCREEN NEGATIVE (NEGATIVE)
[2019-08-18 12:09] LABS: *COCAINE SCREEN URINE PRESUMTIVE POSITIVE (NEGATIVE)
[2019-08-20] MEDS ORDERED: NITROFURANTOIN 100MG M/M CAPSULE PO ONE (19:30)
[2019-08-21] MEDS ORDERED: MAGNESIUM/ALUMINUM HYDROXIDE/SIMETHICONE 30ML UDC PO STA (15:24)
[2019-08-21] MEDS ORDERED: MAGNESIUM/ALUMINUM HYDROXIDE/SIMETHICONE 30ML UDC PO NR (15:45)
[2019-08-21 21:47] VITALS: BP 161/95
== END 2019-08-21 23:18 ==
LOC: ER 08:03
DX: F14.129 Cocaine abuse with intoxication, unspecified (principal); R07.89 Other chest pain; R45.851 Suicidal ideations; J45.909 Unspecified asthma, uncomplicated; I10 Essential (primary) hypertension; F20.9 Schizophrenia, unspecified; G40.909 Epilepsy, unspecified, not intractable, without status epilepticus; Z59.0 Homelessness; Z90.49 Acquired absence of other specified parts of digestive tract; Z90.710 Acquired absence of both cervix and uterus; Z98.890 Other specified postprocedural states; Z75.1 Person awaiting admission to adequate facility elsewhere
CPT/HCPCS: 36415; 71045; 80053; 80305; 80307; 80320; 80329; 81003; 81025; 83880; 84484; 84703; 85025; 93005; 96374; 99284; J1885; J7030; Z7610; G0480

== ENCOUNTER 2019-11-04 22:21 | Inpatient (IN) | payer MEDICAID ==
[~2019-11-04] VITALS: Ht 175.3 cm; Wt 100.2 kg
[2019-11-04] MEDS ORDERED: IPRATROPIUM BROMIDE (0.02%) 0.5MG/2.5ML NEB HHN STA (22:28)
[2019-11-04] MEDS ORDERED: METHYLPREDNISOLONE SOD SUCC 125 MG/2 ML VIAL IV STA (22:28)
[2019-11-04] MEDS ORDERED: ALBUTEROL (0.083%) 2.5MG/3ML NEB HHN STA (22:28)
[2019-11-04] MEDS ORDERED: ONDANSETRON HCL 4MG/2ML INJ IV STA (22:28)
[2019-11-04] MEDS ORDERED: PROPOFOL 10MG/ML 100ML 100 ML IV ONE (22:30)
[2019-11-04] MEDS ORDERED: MAGNESIUM 2 G PREMIX 50 ML IV ONE (22:30)
[2019-11-04] MEDS ORDERED: SUCCINYLCHOLINE CHLORIDE 200MG/10ML IV ONE (22:30)
[2019-11-04] MEDS ORDERED: SODIUM CHLORIDE 0.9% 1,000 ML IV ONE (22:49)
[2019-11-04 22:52] LABS: HEMATOCRIT. 36.7 % (36.0-48.0); HEMOGLOBIN. 12.6 g/dL (12.0-16.0); LYMPHOCYTES % 32.1 % (20.0-50.0); MEAN CORPUSCULAR HEMOGLOBIN 27.5 pg (28.0-32.0); MEAN CORPUSCULAR VOLUME 79.9 fL (81.0-99.0); MEAN PLATELET VOLUME 9.1 fl (7.4-10.4); MONOCYTES % 11.6 % (2.0-8.0); NEUTROPHILS % 49.3 % (40.0-76.0); PLATELET 161 x1000/uL (130-400); RED CELL DISTRIBUTION WIDTH 18.4 % (11.6-14.6)
[2019-11-04 22:59] LABS: CHLORIDE 107 mEq/L (98-107)
[2019-11-04] MEDS ORDERED: PIPERACILLIN/TAZ 3.375G PREMIX 50 ML IV ONE (23:00)
[2019-11-04] MEDS ORDERED: VANCOMYCIN 1 G PREMIX 200 ML IV ONE (23:00)
[2019-11-04] MEDS ORDERED: ETOMIDATE 2MG/ML 10ML VIAL IV ONE (23:00)
[2019-11-05] VITALS (37 sets, daily range): BP systolic 64–195; BP diastolic 30–113
[2019-11-05] MEDS ORDERED: MIDAZOLAM HCL 50 MG in DEXTROSE 5% WATER 40 ML IV ONE ×2
[2019-11-05] MEDS ORDERED: MIDAZOLAM HCL 2 MG/2 ML VIAL IV ONE ×2 (00:15→02:00)
[2019-11-05] MEDS ORDERED: FENTANYL CITRATE/PF 500 MCG in SODIUM CHLORIDE 0.9% 40 ML IV PRN ×3 (00:30)
[2019-11-05] MEDS ORDERED: MIDAZOLAM HCL 50 MG in DEXTROSE 5% WATER 40 ML IV SCH (00:30)
[2019-11-05 01:44] LABS: BG BASE EXCESS -1.2 mmol/L (-2.0-2.0); BG CARBOXYHEMOGLOBIN 0.6 % (0.5-1.5); BG DEOXYHEMOGLOBIN 7.2 % (0.0-5.0); BG FRACTION INSPIRED OXYGEN 40; BG HCO3 ACT 25.9 mmol/L (22.0-26.0); BG METHEMOGLOBIN 0.2 % (0.0-1.5); BG OXYGEN SATURATION 92.7 % (92.0-98.5); BG PCO2 53.5 mmHg (35.0-45.0); BG PH 7.302 (7.350-7.450); BG PO2 75.1 mmHg (75.0-100.0); BG SAMPLE SITE RIGHT RADIAL; BG TIDAL VOLUME(mL) 500 mL; BG TOTAL HEMOGLOBIN 12.3 g/dL (12.0-18.0); BG VENT MODE VENT - A/C; BG VENT RATE 16 set
[2019-11-05] MEDS ORDERED: MIDAZOLAM HCL 2 MG/2 ML VIAL ONE (02:04)
[2019-11-05] MEDS ORDERED: ONDANSETRON HCL 4MG/2ML INJ IV PRN (04:15)
[2019-11-05] MEDS: FENTANYL CITRATE/PF 1,000 MCG in SODIUM CHLORIDE 0.9% 80 ML IV PRN ×2 (04:57→17:03)
[2019-11-05] MEDS: MIDAZOLAM HCL 100 MG in DEXT 5% WATER 80 ML IV PRN ×2 (04:58→17:03)
[2019-11-05] MEDS ORDERED: VANCOMYCIN 1,750 MG in DEXT 5% WATER 500 ML IV SCH (06:00)
[2019-11-05] MEDS ORDERED: FUROSEMIDE 20MG/2ML VIAL IVP NR (09:45)
[2019-11-05 10:02] LABS: BG BASE EXCESS 0.1 mmol/L (-2.0-2.0); BG CARBOXYHEMOGLOBIN 0.3 % (0.5-1.5); BG FRACTION INSPIRED OXYGEN 40; BG HCO3 ACT 26.8 mmol/L (22.0-26.0); BG METHEMOGLOBIN 0.3 % (0.0-1.5); BG OXYHEMOGLOBIN 96.4 % (94.0-97.0); BG PCO2 52.3 mmHg (35.0-45.0); BG PH 7.328 (7.350-7.450); BG PO2 95.7 mmHg (75.0-100.0); BG SAMPLE SITE RIGHT RADIAL; BG TIDAL VOLUME(mL) 500 mL; BG VENT MODE VENT - A/C; BG VENT RATE 16 set
[2019-11-05] MEDS: METHYLPREDNISOLONE SOD SUCC 40 MG/ML VIAL IV SCH ×2 (10:12→18:29)
[2019-11-05] MEDS: FAMOTIDINE 20MG/2ML VIAL IV SCH ×2 (10:13→21:33)
[2019-11-05] MEDS: IPRATROPIUM/ALBUTEROL 0.5-3(2.5)MG/3ML NEB HHN SCH ×2 (11:50→15:30)
[2019-11-05] MEDS ORDERED: VANCOMYCIN 1500MG in DEXTROSE 5% WATER 250ML IV SCH (18:00)
[2019-11-05] MEDS: HYDRALAZINE 20MG/ML VIAL IV PRN (18:29)
[2019-11-05] MEDS: AMLODIPINE 5MG TABLET PO SCH (21:34)
[2019-11-06] VITALS (47 sets, daily range): BP systolic 126–179; BP diastolic 73–113
[2019-11-06] MEDS: METHYLPREDNISOLONE SOD SUCC 40 MG/ML VIAL IV SCH (02:00)
[2019-11-06] MEDS: MIDAZOLAM HCL 100 MG in DEXT 5% WATER 80 ML IV PRN ×2 (04:26→14:46)
[2019-11-06] MEDS: FENTANYL CITRATE/PF 1,000 MCG in SODIUM CHLORIDE 0.9% 80 ML IV PRN ×2 (04:28→15:19)
[2019-11-06 05:33] LABS: BASOPHILS % 0.2 % (0.0-2.0); EOSINOPHILS % 0.1 % (0.0-5.0); HEMATOCRIT. 36.7 % (36.0-48.0); HEMOGLOBIN. 12.2 g/dL (12.0-16.0); LYMPHOCYTES % 19.6 % (20.0-50.0); MEAN CORPUSCULAR HEMOGLOBIN 27.1 pg (28.0-32.0); MEAN CORPUSCULAR VOLUME 81.4 fL (81.0-99.0); MEAN PLATELET VOLUME 8.7 fl (7.4-10.4); MONOCYTES % 10.4 % (2.0-8.0); NEUTROPHILS % 69.7 % (40.0-76.0); PLATELET 155 x1000/uL (130-400); RED CELL DISTRIBUTION WIDTH 18.7 % (11.6-14.6)
[2019-11-06 05:40] LABS: CHLORIDE 107 mEq/L (98-107)
[2019-11-06] MEDS: HYDRALAZINE 20MG/ML VIAL IV PRN (06:41)
[2019-11-06] MEDS: IPRATROPIUM/ALBUTEROL 0.5-3(2.5)MG/3ML NEB HHN SCH ×2 (07:35→20:25)
[2019-11-06] MEDS ORDERED: POTASSIUM CHLORIDE INJ 40 MEQ in DEXT 5% WATER 250 ML IV SCH (09:00)
[2019-11-06] MEDS ORDERED: FUROSEMIDE 20MG/2ML VIAL IVP NR (09:30)
[2019-11-06 09:45] LABS: BG BASE EXCESS 1.3 mmol/L (-2.0-2.0); BG CARBOXYHEMOGLOBIN 0.6 % (0.5-1.5); BG DEOXYHEMOGLOBIN 3.8 % (0.0-5.0); BG FRACTION INSPIRED OXYGEN 40; BG HCO3 ACT 27.1 mmol/L (22.0-26.0); BG METHEMOGLOBIN 0.3 % (0.0-1.5); BG OXYGEN SATURATION 96.2 % (92.0-98.5); BG OXYHEMOGLOBIN 95.3 % (94.0-97.0); BG PCO2 47.9 mmHg (35.0-45.0); BG PH 7.371 (7.350-7.450); BG PO2 83.2 mmHg (75.0-100.0); BG SAMPLE SITE RIGHT RADIAL; BG TIDAL VOLUME(mL) 500 mL; BG TOTAL HEMOGLOBIN 12.4 g/dL (12.0-18.0); BG VENT MODE VENT - A/C; BG VENT RATE 16 set
[2019-11-06] MEDS: FAMOTIDINE 20MG/2ML VIAL IV SCH ×2 (09:55→21:48)
[2019-11-06] MEDS: AMLODIPINE 5MG TABLET PO SCH ×2 (09:56→21:47)
[2019-11-06] MEDS: ENOXAPARIN 30MG/0.3ML SYR SUBCUT SCH ×2 (09:57→21:48)
[2019-11-06] MEDS: LOSARTAN POTASSIUM 100 MG TABLET PO SCH (09:58)
[2019-11-07] VITALS (56 sets, daily range): BP systolic 128–170; BP diastolic 36–101
[2019-11-07] MEDS: MIDAZOLAM HCL 100 MG in DEXT 5% WATER 80 ML IV PRN (00:35)
[2019-11-07] MEDS: FENTANYL CITRATE/PF 1,000 MCG in SODIUM CHLORIDE 0.9% 80 ML IV PRN (02:00)
[2019-11-07 05:37] LABS: BASOPHILS % 0.2 % (0.0-2.0); CHLORIDE 107 mEq/L (98-107); HEMATOCRIT. 35.1 % (36.0-48.0); HEMOGLOBIN. 11.9 g/dL (12.0-16.0); LYMPHOCYTES % 14.9 % (20.0-50.0); MEAN CORPUSCULAR HEMOGLOBIN 27.2 pg (28.0-32.0); MEAN CORPUSCULAR VOLUME 80.3 fL (81.0-99.0); MEAN PLATELET VOLUME 8.8 fl (7.4-10.4); MONOCYTES % 8.8 % (2.0-8.0); NEUTROPHILS % 76.1 % (40.0-76.0); PLATELET 165 x1000/uL (130-400); RED BLOOD CELL COUNT 4.37 mill/uL (4.2-5.4); RED CELL DISTRIBUTION WIDTH 18.3 % (11.6-14.6)
[2019-11-07 07:10] LABS: CLARITY URINE CLOUDY (CLEAR); COLOR URINE DK YELLOW (YELLOW); KETONES URINE NEGATIVE (NEGATIVE); LEUKOCYTE ESTERASE URINE 1+ (NEGATIVE); NITRITE URINE NEGATIVE (NEGATIVE); OCCULT BLOOD URINE 3+ (NEGATIVE); PROTEIN URINE 2+ (NEGATIVE); SPECIFIC GRAVITY URINE 1.018 (1.005-1.030)
[2019-11-07 07:40] LABS: *AMPHETAMINES SCREEN URINE NEGATIVE (NEGATIVE); *BARBITURATES SCREEN URINE NEGATIVE (NEGATIVE); CANNABINOID URINE SCREEN NEGATIVE (NEGATIVE)
[2019-11-07 07:41] LABS: METHADONE URINE SCREEN NEGATIVE (NEGATIVE); OPIATES URINE SCREEN NEGATIVE (NEGATIVE); PHENCYCLIDINE URINE SCREEN NEGATIVE (NEGATIVE)
[2019-11-07 07:43] LABS: *BENZODIAZEPINES SCREEN URINE PRESUMTIVE POSITIVE (NEGATIVE); *COCAINE SCREEN URINE PRESUMTIVE POSITIVE (NEGATIVE)
[2019-11-07] MEDS: IPRATROPIUM/ALBUTEROL 0.5-3(2.5)MG/3ML NEB HHN SCH ×3 (08:17→16:18)
[2019-11-07] MEDS: LOSARTAN POTASSIUM 100 MG TABLET PO SCH (08:51)
[2019-11-07] MEDS: AMLODIPINE 5MG TABLET PO SCH ×2 (08:51→21:48)
[2019-11-07] MEDS: FAMOTIDINE 20MG/2ML VIAL IV SCH ×2 (08:52→21:52)
[2019-11-07] MEDS: ENOXAPARIN 30MG/0.3ML SYR SUBCUT SCH ×2 (08:53→21:49)
[2019-11-07] MEDS ORDERED: POTASSIUM CHLORIDE 20MEQ TABLET SR PO NR (10:30)
[2019-11-07 13:52] LABS: BG BASE EXCESS 4.7 mmol/L (-2.0-2.0); BG CARBOXYHEMOGLOBIN 0.3 % (0.5-1.5); BG CPAP (cmH2O) 0 cm(H2O); BG METHEMOGLOBIN 0.3 % (0.0-1.5); BG OXYHEMOGLOBIN 95.4 % (94.0-97.0); BG PCO2 53.9 mmHg (35.0-45.0); BG PH 7.378 (7.350-7.450); BG PO2 87.2 mmHg (75.0-100.0); BG SAMPLE SITE RIGHT RADIAL; BG TOTAL HEMOGLOBIN 12.3 g/dL (12.0-18.0); BG VENT MODE VENT - CPAP
[2019-11-07] MEDS: PREDNISONE 20MG TABLET PO SCH (17:19)
[2019-11-07] MEDS: HYDRALAZINE 20MG/ML VIAL IV PRN ×2 (17:44→23:44)
[2019-11-07] MEDS: BUDESONIDE 0.5MG/2ML NEB HHN SCH (20:17)
[2019-11-07] MEDS: HYDRALAZINE HCL 50MG TABLET PO SCH (21:48)
[2019-11-07] MEDS: LEVETIRACETAM 500MG/5ML CUP PO SCH (21:48)
[2019-11-08] VITALS (7 sets, daily range): BP systolic 113–148; BP diastolic 69–84
[2019-11-08 06:14] LABS: BASOPHILS % 0.4 % (0.0-2.0); EOSINOPHILS % 0.1 % (0.0-5.0); HEMATOCRIT. 33.9 % (36.0-48.0); HEMOGLOBIN. 11.5 g/dL (12.0-16.0); LYMPHOCYTES % 14.1 % (20.0-50.0); MEAN CORPUSCULAR HEMOGLOBIN 27.1 pg (28.0-32.0); MEAN CORPUSCULAR VOLUME 79.7 fL (81.0-99.0); MEAN PLATELET VOLUME 8.5 fl (7.4-10.4); MONOCYTES % 7.8 % (2.0-8.0); NEUTROPHILS % 77.6 % (40.0-76.0); PLATELET 173 x1000/uL (130-400); RED BLOOD CELL COUNT 4.26 mill/uL (4.2-5.4); RED CELL DISTRIBUTION WIDTH 17.9 % (11.6-14.6)
[2019-11-08 06:20] LABS: CHLORIDE 106 mEq/L (98-107)
[2019-11-08] MEDS: LEVETIRACETAM 500MG/5ML CUP PO SCH (08:10)
[2019-11-08] MEDS: PREDNISONE 20MG TABLET PO SCH (08:10)
[2019-11-08] MEDS: LOSARTAN POTASSIUM 100 MG TABLET PO SCH (08:11)
[2019-11-08] MEDS: HYDRALAZINE HCL 50MG TABLET PO SCH (08:11)
[2019-11-08] MEDS: AMLODIPINE 5MG TABLET PO SCH (08:11)
[2019-11-08] MEDS: FAMOTIDINE 20MG/2ML VIAL IV SCH (08:11)
[2019-11-08] MEDS: ENOXAPARIN 30MG/0.3ML SYR SUBCUT SCH (08:11)
[2019-11-08] MEDS: BUDESONIDE 0.5MG/2ML NEB HHN SCH (09:18)
[2019-11-08] MEDS: IPRATROPIUM/ALBUTEROL 0.5-3(2.5)MG/3ML NEB HHN SCH (09:19)
[2019-11-08] MEDS ORDERED: LOSA100T32 MT (11:02)
[2019-11-08] MEDS ORDERED: HYDR-4135 MT (11:02)
[2019-11-08] MEDS ORDERED: ALBU18HF2 IH (11:02)
== END 2019-11-08 11:30 | disposition home or self-care (01) | DRG 133 ==
LOC: ER 22:21 → MICUSO 11-05 00:34 → EDBEDREQSVC 11-05 00:39 → EDBEDREQ 11-05 00:39 → EDBEDREQTM 11-05 00:39 → EDBEDREQDT 11-05 00:39 → ENRESERV 11-05 01:28 → CVICU 11-07 12:28 → 5EST 11-07 22:54
PROVIDERS: ADMIT Internal Medicine; ATTEND Internal Medicine
PROC: 0BH17EZ Insertion of Endotracheal Airway into Trachea, Via Natural or Artificial Opening (ICD-10-PCS; principal; 2019-11-04)
PROC: 5A1945Z Respiratory Ventilation, 24-96 Consecutive Hours (ICD-10-PCS; 2019-11-04)
DX: J96.00 Acute respiratory failure, unspecified whether with hypoxia or hypercapnia (principal); J18.9 Pneumonia, unspecified organism; I11.0 Hypertensive heart disease with heart failure; I50.9 Heart failure, unspecified; J45.901 Unspecified asthma with (acute) exacerbation; T40.5X1A Poisoning by cocaine, accidental (unintentional), initial encounter; F14.10 Cocaine abuse, uncomplicated; F13.10 Sedative, hypnotic or anxiolytic abuse, uncomplicated; G40.909 Epilepsy, unspecified, not intractable, without status epilepticus; E66.9 Obesity, unspecified; D72.810 Lymphocytopenia; F17.210 Nicotine dependence, cigarettes, uncomplicated; Y92.89 Other specified places as the place of occurrence of the external cause; Z90.49 Acquired absence of other specified parts of digestive tract; Z90.710 Acquired absence of both cervix and uterus; Z98.891 History of uterine scar from previous surgery; Z68.32 Body mass index [BMI] 32.0-32.9, adult; Z03.818 Encounter for observation for suspected exposure to other biological agents ruled out
CPT/HCPCS: 36415; 36600; 71045; 80048; 80053; 80305; 81003; 82375; 82805; 83605; 83880; 84484; 85025; 87635; 87804; 92610; 93005; 94002; 94003; 94640; 96365; 96367; 96368; 96375; 96376; 97162; 97166; 99291; J0360; J1650; J1940; J2250; J2405; J2543; J2704; J2920; J2930; J3010; J3370; J3475; J3480; J3490; J7030; J7050; J7060; J7512; J7626

== ENCOUNTER 2020-03-02 15:22 | Inpatient (IN) | payer MEDICAID ==
[~2020-03-02] VITALS: Ht 177.8 cm; Wt 126.1 kg
[~2020-03-02 15:22] MED LIST changes: +ALBU18HF2 IH; -GABA100C; +HYDR-4135 MT; +LOSA100T32 MT
[2020-03-02 16:44] LABS: BASOPHILS % 0.4 % (0.0-2.0); EOSINOPHILS % 3.4 % (0.0-5.0); HEMATOCRIT. 35.7 % (36.0-48.0); LYMPHOCYTES % 21.4 % (20.0-50.0); MEAN CORPUSCULAR HEMOGLOBIN 26.2 pg (28.0-32.0); MEAN PLATELET VOLUME 9.2 fl (7.4-10.4); MONOCYTES % 5.3 % (2.0-8.0); NEUTROPHILS % 69.5 % (40.0-76.0); PLATELET 169 x1000/uL (130-400); RED BLOOD CELL COUNT 4.57 mill/uL (4.2-5.4); RED CELL DISTRIBUTION WIDTH 17.7 % (11.6-14.6)
[2020-03-02 16:49] LABS: CHLORIDE 106 mEq/L (98-107)
[2020-03-02 16:57] LABS: HCG SCREEN NEGATIVE
[2020-03-02 16:58] LABS: D-DIMER 1.25 mg/L FEU (<0.50); PARTIAL THROMBOPLASTIN TIME 25.8 sec (23.4-31.0); PROTHROMBIN TIME 10.3 sec (9.6-11.0)
[2020-03-02] MEDS: ALBUTEROL (0.083%) 2.5MG/3ML NEB HHN SCH ×2 (17:00→17:36)
[2020-03-02] MEDS ORDERED: POTASSIUM CHLORIDE 20MEQ TABLET SR PO ONE (17:15)
[2020-03-02] MEDS ORDERED: NITROGLYCERIN 0.4MG TABLET SL SL ONE (18:15)
[2020-03-02] MEDS ORDERED: NITROGLYCERIN 0.4MG TABLET SL SL NR (20:00)
[2020-03-02] MEDS ORDERED: ASPIRIN 325MG TABLET PO ONE (22:00)
[2020-03-02] MEDS ORDERED: IOHEXOL-350 100 ML BOTTLE ONE (23:51)
[2020-03-03 01:00] VITALS: BP 178/80
[2020-03-03 06:42] LABS: BASOPHILS % 0.5 % (0.0-2.0); HEMATOCRIT. 32.7 % (36.0-48.0); MEAN CORPUSCULAR HEMOGLOBIN 26.1 pg (28.0-32.0); MEAN CORPUSCULAR VOLUME 77.3 fL (81.0-99.0); MEAN PLATELET VOLUME 9.3 fl (7.4-10.4); MONOCYTES % 7.7 % (2.0-8.0); NEUTROPHILS % 66.8 % (40.0-76.0); PLATELET 164 x1000/uL (130-400); RED BLOOD CELL COUNT 4.23 mill/uL (4.2-5.4); RED CELL DISTRIBUTION WIDTH 18.1 % (11.6-14.6)
[2020-03-03 06:48] LABS: CHLORIDE 107 mEq/L (98-107)
[2020-03-03 07:06] LABS: CREATINE KINASE 178 IU/L (26-192)
[2020-03-03 07:08] LABS: CREATINE KINASE MB FRACTION 1.6 ng/mL (0.5-3.6)
[2020-03-03 08:00] VITALS: BP 137/79
[2020-03-03] MEDS: FUROSEMIDE 40MG/4ML VIAL IVP SCH (08:24)
[2020-03-03] MEDS: HEPARIN 5000 UNITS/ML VIAL SUBCUT SCH ×2 (08:24→20:19)
[2020-03-03] MEDS: ASPIRIN 81MG TABLET PO SCH (08:24)
[2020-03-03] MEDS ORDERED: FLUCONAZOLE 100MG TABLET PO SCH (10:30)
[2020-03-03 12:00] VITALS: BP 180/117
[2020-03-03] MEDS: HYDROCODONE/ACETAMINOPHEN 5/325MG TABLET PO PRN ×2 (12:43→17:54)
[2020-03-03] MEDS ORDERED: CLONIDINE 0.1MG TABLET PO PRN (13:00)
[2020-03-03 14:44] VITALS: BP 150/82
[2020-03-03 16:00] VITALS: BP 163/100
[2020-03-03 19:16] LABS: *AMPHETAMINES SCREEN URINE NEGATIVE (NEGATIVE); CANNABINOID URINE SCREEN NEGATIVE (NEGATIVE); METHADONE URINE SCREEN NEGATIVE (NEGATIVE); PHENCYCLIDINE URINE SCREEN NEGATIVE (NEGATIVE)
[2020-03-03 19:17] LABS: *BARBITURATES SCREEN URINE NEGATIVE (NEGATIVE); *BENZODIAZEPINES SCREEN URINE NEGATIVE (NEGATIVE)
[2020-03-03 19:24] LABS: *COCAINE SCREEN URINE PRESUMTIVE POSITIVE (NEGATIVE)
[2020-03-03 19:25] LABS: OPIATES URINE SCREEN PRESUMTIVE POSITIVE (NEGATIVE)
[2020-03-03 20:00] VITALS: BP 145/89
[2020-03-03] MEDS: AMLODIPINE 10MG TABLET PO SCH (21:20)
[2020-03-04] VITALS: BP 116/96
[2020-03-04 04:00] VITALS: BP 134/92
[2020-03-04 06:52] LABS: BASOPHILS % 0.5 % (0.0-2.0); EOSINOPHILS % 4.4 % (0.0-5.0); HEMATOCRIT. 35.4 % (36.0-48.0); LYMPHOCYTES % 22.7 % (20.0-50.0); MEAN CORPUSCULAR HEMOGLOBIN 26.2 pg (28.0-32.0); MEAN PLATELET VOLUME 9.6 fl (7.4-10.4); MONOCYTES % 7.7 % (2.0-8.0); NEUTROPHILS % 64.7 % (40.0-76.0); PLATELET 175 x1000/uL (130-400); RED CELL DISTRIBUTION WIDTH 17.9 % (11.6-14.6)
[2020-03-04 07:14] LABS: CHLORIDE 103 mEq/L (98-107)
[2020-03-04 08:00] VITALS: BP 150/117
[2020-03-04] MEDS: ASPIRIN 81MG TABLET PO SCH (08:37)
[2020-03-04] MEDS: AMLODIPINE 10MG TABLET PO SCH (08:37)
[2020-03-04] MEDS: FUROSEMIDE 40MG/4ML VIAL IVP SCH (08:37)
[2020-03-04] MEDS: HEPARIN 5000 UNITS/ML VIAL SUBCUT SCH (08:48)
[2020-03-04] MEDS ORDERED: AMLO10TA80 PO (12:36)
[2020-03-04] MEDS ORDERED: FURO40TA5 MT (12:36)
[2020-03-04] MEDS ORDERED: ASPI-1160 PO (12:36)
[2020-03-04] MEDS: HYDROCODONE/ACETAMINOPHEN 5/325MG TABLET PO PRN (16:17)
[2020-03-04 16:59] VITALS: BP 112/60
== END 2020-03-04 17:56 | disposition home or self-care (01) | DRG 140 ==
LOC: ER 15:22 → 6WST 20:24 → EDBEDREQ 20:28 → EDBEDREQTM 20:28 → ENRESERV 20:50
PROVIDERS: ADMIT Internal Medicine; ATTEND Internal Medicine
DX: J44.1 Chronic obstructive pulmonary disease with (acute) exacerbation (principal); I11.0 Hypertensive heart disease with heart failure; J96.00 Acute respiratory failure, unspecified whether with hypoxia or hypercapnia; B37.3 Candidiasis of vulva and vagina; E87.6 Hypokalemia; F17.200 Nicotine dependence, unspecified, uncomplicated; I50.9 Heart failure, unspecified; F14.90 Cocaine use, unspecified, uncomplicated; F12.90 Cannabis use, unspecified, uncomplicated; I16.0 Hypertensive urgency; R82.71 Bacteriuria; Z90.710 Acquired absence of both cervix and uterus; Z90.49 Acquired absence of other specified parts of digestive tract; Z71.51 Drug abuse counseling and surveillance of drug abuser
CPT/HCPCS: 36415; 71045; 71275; 80048; 80053; 80061; 80305; 82550; 82553; 83880; 84484; 84703; 85025; 85379; 93005; 93306; 94640; 99285; J1644; J1940; Q9967

== ENCOUNTER 2020-03-18 05:44 | Inpatient (IN) | payer MEDICAID ==
[~2020-03-18] VITALS: Ht 170.2 cm; Wt 99.0 kg
[~2020-03-18 05:44] MED LIST changes: +AMLO10TA80 PO; +ASPI-1160 PO; +FURO40TA5 MT; -HYDR-4135 MT
[2020-03-18] MEDS ORDERED: IPRATROPIUM BROMIDE (0.02%) 0.5MG/2.5ML NEB HHN STA (05:55)
[2020-03-18] MEDS ORDERED: METHYLPREDNISOLONE SOD SUCC 125 MG/2 ML VIAL IV STA (05:55)
[2020-03-18] MEDS ORDERED: MAGNESIUM 2 G PREMIX 50 ML IV ONE (06:00)
[2020-03-18 06:12] LABS: BASOPHILS % 0.8 % (0.0-2.0); EOSINOPHILS % 4.1 % (0.0-5.0); HEMATOCRIT. 34.2 % (36.0-48.0); HEMOGLOBIN. 11.6 g/dL (12.0-16.0); LYMPHOCYTES % 30.4 % (20.0-50.0); MEAN CORPUSCULAR HEMOGLOBIN 26.1 pg (28.0-32.0); MEAN PLATELET VOLUME 8.3 fl (7.4-10.4); MONOCYTES % 5.6 % (2.0-8.0); NEUTROPHILS % 59.1 % (40.0-76.0); PLATELET 191 x1000/uL (130-400); RED BLOOD CELL COUNT 4.45 mill/uL (4.2-5.4); RED CELL DISTRIBUTION WIDTH 18.3 % (11.6-14.6)
[2020-03-18 06:18] LABS: CHLORIDE 105 mEq/L (98-107)
[2020-03-18] MEDS ORDERED: MORPHINE SULFATE 4 MG/ML CPJ (NOT FOR IM USE) IV ONE (06:30)
[2020-03-18] MEDS: ALBUTEROL (0.083%) 2.5MG/3ML NEB HHN SCH (06:46)
[2020-03-18 07:01] LABS: BG BASE EXCESS 0.7 mmol/L (-2.0-2.0); BG CARBOXYHEMOGLOBIN 4.7 % (0.5-1.5); BG DEOXYHEMOGLOBIN 8.1 % (0.0-5.0); BG FRACTION INSPIRED OXYGEN 50; BG HCO3 ACT 26.2 mmol/L (22.0-26.0); BG METHEMOGLOBIN 0.3 % (0.0-1.5); BG OXYGEN SATURATION 91.5 % (92.0-98.5); BG OXYHEMOGLOBIN 86.9 % (94.0-97.0); BG PCO2 45.7 mmHg (35.0-45.0); BG PH 7.376 (7.350-7.450); BG PO2 69.9 mmHg (75.0-100.0); BG SAMPLE SITE RIGHT RADIAL
[2020-03-18] MEDS ORDERED: ASPIRIN 325MG EC TABLET PO ONE (09:00)
[2020-03-18] MEDS ORDERED: IPRATROPIUM/ALBUTEROL 0.5-3(2.5)MG/3ML NEB NEB PRN (09:00)
[2020-03-18] MEDS ORDERED: ONDANSETRON HCL 4MG/2ML INJ IV PRN (09:00)
[2020-03-18] MEDS ORDERED: ENOXAPARIN 40MG/0.4ML SYR SUBCUT SCH (09:00)
[2020-03-18] MEDS ORDERED: ACETAMINOPHEN 325MG TABLET PO PRN (09:00)
[2020-03-18] MEDS ORDERED: DOCUSATE SODIUM 100MG CAPSULE PO PRN (09:00)
[2020-03-18] MEDS: ENOXAPARIN 30MG/0.3ML SYR SUBCUT SCH ×2 (09:15→21:00)
[2020-03-18] MEDS: ASPIRIN 81MG EC TABLET PO SCH (09:15)
[2020-03-18 10:24] LABS: CHLORIDE 105 mEq/L (98-107)
[2020-03-18] MEDS: LOSARTAN POTASSIUM 50 MG TABLET PO SCH (11:00)
[2020-03-18] MEDS ORDERED: FUROSEMIDE 40MG/4ML VIAL IVP SCH (11:00)
[2020-03-18] MEDS: FUROSEMIDE 40MG/4ML VIAL IVP SCH ×2 (14:47→21:54)
[2020-03-18 15:20] LABS: CREATINE KINASE 263 IU/L (26-192)
[2020-03-18 15:21] LABS: CREATINE KINASE MB FRACTION 2.5 ng/mL (0.5-3.6)
[2020-03-18 17:15] VITALS: BP 131/61
[2020-03-18] MEDS ORDERED: DEXTROSE 50% WATER 50ML SYRINGE IV PRN (18:00)
[2020-03-18 20:00] VITALS: BP 148/92
[2020-03-18] MEDS ORDERED: POTASSIUM CHLORIDE 20MEQ TABLET SR PO NR (20:00)
[2020-03-18] MEDS: INSULIN LISPRO 100 UNITS/ML SUBCUT SCH (21:00)
[2020-03-18] MEDS: BLOOD SUGAR DIAGNOSTIC STRIP TEST SCH (21:00)
[2020-03-18] MEDS: HYDROCODONE/ACETAMINOPHEN 5/325MG TABLET PO PRN (21:55)
[2020-03-18 23:41] LABS: CREATINE KINASE 258 IU/L (26-192)
[2020-03-18 23:42] LABS: CREATINE KINASE MB FRACTION 2.3 ng/mL (0.5-3.6)
[2020-03-19] VITALS: BP 144/73
[2020-03-19 04:00] VITALS: BP 137/85
[2020-03-19] MEDS: BLOOD SUGAR DIAGNOSTIC STRIP TEST SCH ×4 (07:10→20:15)
[2020-03-19] MEDS: INSULIN LISPRO 100 UNITS/ML SUBCUT SCH ×4 (07:40→20:15)
[2020-03-19 07:56] VITALS: BP 129/80
[2020-03-19] MEDS: LOSARTAN POTASSIUM 50 MG TABLET PO SCH (08:46)
[2020-03-19] MEDS: FUROSEMIDE 40MG/4ML VIAL IVP SCH ×2 (08:46→17:16)
[2020-03-19] MEDS: ASPIRIN 81MG EC TABLET PO SCH (08:46)
[2020-03-19] MEDS: ENOXAPARIN 30MG/0.3ML SYR SUBCUT SCH ×2 (08:47→20:19)
[2020-03-19 08:52] LABS: BASOPHILS % 0.4 % (0.0-2.0); HEMATOCRIT. 35.7 % (36.0-48.0); HEMOGLOBIN. 11.7 g/dL (12.0-16.0); LYMPHOCYTES % 8.3 % (20.0-50.0); MEAN CORPUSCULAR HEMOGLOBIN 25.5 pg (28.0-32.0); MEAN CORPUSCULAR VOLUME 77.5 fL (81.0-99.0); MEAN PLATELET VOLUME 8.6 fl (7.4-10.4); MONOCYTES % 5.5 % (2.0-8.0); NEUTROPHILS % 85.8 % (40.0-76.0); PLATELET 188 x1000/uL (130-400); RED CELL DISTRIBUTION WIDTH 18.7 % (11.6-14.6)
[2020-03-19 11:54] VITALS: BP 127/79
[2020-03-19 13:28] LABS: CLARITY URINE CLEAR (CLEAR); COLOR URINE YELLOW (YELLOW); KETONES URINE NEGATIVE (NEGATIVE); LEUKOCYTE ESTERASE URINE 1+ (NEGATIVE); NITRITE URINE NEGATIVE (NEGATIVE); OCCULT BLOOD URINE NEGATIVE (NEGATIVE); PROTEIN URINE NEGATIVE (NEGATIVE); SPECIFIC GRAVITY URINE 1.017 (1.005-1.030)
[2020-03-19 14:19] LABS: *AMPHETAMINES SCREEN URINE NEGATIVE (NEGATIVE); *BARBITURATES SCREEN URINE NEGATIVE (NEGATIVE); *BENZODIAZEPINES SCREEN URINE NEGATIVE (NEGATIVE)
[2020-03-19 14:20] LABS: CANNABINOID URINE SCREEN NEGATIVE (NEGATIVE); METHADONE URINE SCREEN NEGATIVE (NEGATIVE); PHENCYCLIDINE URINE SCREEN NEGATIVE (NEGATIVE)
[2020-03-19 14:26] LABS: CHLORIDE 106 mEq/L (98-107)
[2020-03-19 14:34] LABS: *COCAINE SCREEN URINE PRESUMTIVE POSITIVE (NEGATIVE); OPIATES URINE SCREEN PRESUMTIVE POSITIVE (NEGATIVE)
[2020-03-19 16:02] VITALS: BP 126/76
[2020-03-19] MEDS: HYDROCODONE/ACETAMINOPHEN 5/325MG TABLET PO PRN (17:43)
[2020-03-19 20:00] VITALS: BP 136/89
[2020-03-20] VITALS: BP 147/86
[2020-03-20 04:00] VITALS: BP 128/83
[2020-03-20] MEDS: BLOOD SUGAR DIAGNOSTIC STRIP TEST SCH ×2 (06:30→12:10)
[2020-03-20] MEDS: INSULIN LISPRO 100 UNITS/ML SUBCUT SCH ×2 (06:30→12:40)
[2020-03-20 07:05] LABS: BASOPHILS % 0.5 % (0.0-2.0); EOSINOPHILS % 1.9 % (0.0-5.0); HEMATOCRIT. 37.5 % (36.0-48.0); HEMOGLOBIN. 12.6 g/dL (12.0-16.0); MEAN CORPUSCULAR HEMOGLOBIN 25.9 pg (28.0-32.0); MEAN CORPUSCULAR VOLUME 77.2 fL (81.0-99.0); MEAN PLATELET VOLUME 9.1 fl (7.4-10.4); MONOCYTES % 7.5 % (2.0-8.0); NEUTROPHILS % 59.1 % (40.0-76.0); PLATELET 186 x1000/uL (130-400); RED BLOOD CELL COUNT 4.85 mill/uL (4.2-5.4); RED CELL DISTRIBUTION WIDTH 18.4 % (11.6-14.6)
[2020-03-20 08:00] VITALS: BP 138/67
[2020-03-20] MEDS: ENOXAPARIN 30MG/0.3ML SYR SUBCUT SCH (09:00)
[2020-03-20] MEDS: ASPIRIN 81MG EC TABLET PO SCH (09:13)
[2020-03-20] MEDS: LOSARTAN POTASSIUM 50 MG TABLET PO SCH (09:13)
[2020-03-20] MEDS: FUROSEMIDE 40MG/4ML VIAL IVP SCH (09:13)
[2020-03-20] MEDS ORDERED: LOSA50TA3 PO (10:58)
[2020-03-20 11:37] VITALS: BP 131/85
[2020-03-20 12:00] VITALS: BP 131/85
== END 2020-03-20 13:08 | disposition home or self-care (01) | DRG 194 ==
LOC: ER 05:44 → 8WST 08:54 → ENRESERV 14:09
PROVIDERS: ADMIT Internal Medicine; ATTEND Internal Medicine
DX: I11.0 Hypertensive heart disease with heart failure (principal); M94.0 Chondrocostal junction syndrome [Tietze]; J96.00 Acute respiratory failure, unspecified whether with hypoxia or hypercapnia; J44.1 Chronic obstructive pulmonary disease with (acute) exacerbation; E11.9 Type 2 diabetes mellitus without complications; E66.01 Morbid (severe) obesity due to excess calories; F10.10 Alcohol abuse, uncomplicated; F14.90 Cocaine use, unspecified, uncomplicated; I42.0 Dilated cardiomyopathy; I42.7 Cardiomyopathy due to drug and external agent; F17.210 Nicotine dependence, cigarettes, uncomplicated; G40.909 Epilepsy, unspecified, not intractable, without status epilepticus; Z91.14 Patient's other noncompliance with medication regimen; Z91.19 Patient's noncompliance with other medical treatment and regimen; Z68.34 Body mass index [BMI] 34.0-34.9, adult; Z79.899 Other long term (current) drug therapy; I25.2 Old myocardial infarction; Z90.49 Acquired absence of other specified parts of digestive tract; Z79.82 Long term (current) use of aspirin; R65.11 Systemic inflammatory response syndrome (SIRS) of non-infectious origin with acute organ dysfunction; I50.23 Acute on chronic systolic (congestive) heart failure
CPT/HCPCS: 36415; 36600; 71045; 80048; 80053; 80061; 80305; 81003; 82375; 82550; 82553; 82805; 82962; 83036; 83605; 83735; 83880; 84443; 84484; 85025; 93005; 93306; 94640; 94644; 99285; J1650; J1940; J2270; J2930; J3475

== ENCOUNTER 2020-04-27 04:25 | Inpatient (IN) | payer MEDICAID ==
[~2020-04-27] VITALS: Ht 177.8 cm; Wt 136.5 kg
[~2020-04-27 04:25] MED LIST changes: -AMLO10TA80 PO; -LOSA100T32 MT; +LOSA50TA3 PO
[2020-04-27] MEDS ORDERED: NITROGLYCERIN 0.4MG TABLET SL SL PRN (05:15)
[2020-04-27] MEDS ORDERED: ASPIRIN 81MG TABLET PO ONE (05:15)
[2020-04-27 05:19] LABS: BASOPHILS % 0.5 % (0.0-2.0); EOSINOPHILS % 3.9 % (0.0-5.0); HEMATOCRIT. 36.3 % (36.0-48.0); HEMOGLOBIN. 12.3 g/dL (12.0-16.0); LYMPHOCYTES % 26.1 % (20.0-50.0); MEAN CORPUSCULAR HEMOGLOBIN 27.3 pg (28.0-32.0); MEAN CORPUSCULAR VOLUME 80.7 fL (81.0-99.0); MEAN PLATELET VOLUME 8.4 fl (7.4-10.4); MONOCYTES % 7.5 % (2.0-8.0); PLATELET 202 x1000/uL (130-400); RED CELL DISTRIBUTION WIDTH 20.5 % (11.6-14.6)
[2020-04-27 05:20] LABS: CHLORIDE 109 mEq/L (98-107)
[2020-04-27] MEDS ORDERED: MORPHINE SULFATE 4 MG/ML CPJ (NOT FOR IM USE) IV ONE (06:30)
[2020-04-27] MEDS ORDERED: ACETAMINOPHEN 325MG TABLET PO PRN (09:15)
[2020-04-27] MEDS ORDERED: ONDANSETRON HCL 4MG/2ML INJ IV PRN (09:15)
[2020-04-27] MEDS: FUROSEMIDE 40MG/4ML VIAL IVP SCH (09:44)
[2020-04-27] MEDS: LOSARTAN POTASSIUM 100 MG TABLET PO SCH (09:44)
[2020-04-27] MEDS: ENOXAPARIN 30MG/0.3ML SYR SUBCUT SCH ×3 (09:47→21:26)
[2020-04-27 10:00] VITALS: BP 152/88
[2020-04-27 12:00] VITALS: BP 119/68
[2020-04-27] MEDS ORDERED: LOSARTAN POTASSIUM 25 MG TABLET PO SCH (14:00)
[2020-04-27 16:00] VITALS: BP 144/63
[2020-04-27 16:53] VITALS: BP 152/88
[2020-04-27] MEDS ORDERED: IPRATROPIUM/ALBUTEROL 0.5-3(2.5)MG/3ML NEB HHN PRN (17:30)
[2020-04-27] MEDS: KETOROLAC 30MG/ML VIAL IV PRN (17:57)
[2020-04-27 20:00] VITALS: BP 167/102
[2020-04-27] MEDS: AMLODIPINE 2.5MG TABLET PO SCH (21:24)
[2020-04-28] VITALS: BP 116/65
[2020-04-28 04:00] VITALS: BP 125/66
[2020-04-28 07:00] LABS: BASOPHILS % 0.5 % (0.0-2.0); EOSINOPHILS % 5.5 % (0.0-5.0); HEMOGLOBIN. 11.5 g/dL (12.0-16.0); LYMPHOCYTES % 26.1 % (20.0-50.0); MEAN CORPUSCULAR HEMOGLOBIN 27.2 pg (28.0-32.0); MEAN CORPUSCULAR VOLUME 80.5 fL (81.0-99.0); MEAN PLATELET VOLUME 8.5 fl (7.4-10.4); MONOCYTES % 6.9 % (2.0-8.0); PLATELET 154 x1000/uL (130-400); RED BLOOD CELL COUNT 4.23 mill/uL (4.2-5.4)
[2020-04-28 07:10] LABS: CHLORIDE 105 mEq/L (98-107)
[2020-04-28 07:24] LABS: CREATINE KINASE 189 IU/L (26-192)
[2020-04-28 07:30] LABS: CREATINE KINASE MB FRACTION 1.8 ng/mL (0.5-3.6)
[2020-04-28 08:00] VITALS: BP 153/89
[2020-04-28] MEDS: ENOXAPARIN 30MG/0.3ML SYR SUBCUT SCH ×2 (09:00→20:03)
[2020-04-28] MEDS: FUROSEMIDE 40MG/4ML VIAL IVP SCH (09:07)
[2020-04-28] MEDS: AMLODIPINE 2.5MG TABLET PO SCH (09:07)
[2020-04-28] MEDS: ASPIRIN 81MG TABLET PO SCH (09:07)
[2020-04-28] MEDS: LOSARTAN POTASSIUM 100 MG TABLET PO SCH (09:07)
[2020-04-28 12:00] VITALS: BP 141/87
[2020-04-28] MEDS ORDERED: CLONIDINE 0.2MG TABLET PO PRN ×2 (12:15)
[2020-04-28] MEDS ORDERED: ALBU18HF2 IH (15:26)
[2020-04-28] MEDS ORDERED: CARV12.545 MT (15:26)
[2020-04-28] MEDS ORDERED: ASPI-1160 PO (15:26)
[2020-04-28] MEDS ORDERED: LOSA100T3 PO (15:26)
[2020-04-28] MEDS ORDERED: FURO40TA5 MT (15:26)
[2020-04-28 15:52] LABS: *AMPHETAMINES SCREEN URINE NEGATIVE (NEGATIVE); *BARBITURATES SCREEN URINE NEGATIVE (NEGATIVE); *BENZODIAZEPINES SCREEN URINE NEGATIVE (NEGATIVE)
[2020-04-28 15:53] VITALS: BP 165/78
[2020-04-28 15:54] LABS: *COCAINE SCREEN URINE PRESUMTIVE POSITIVE (NEGATIVE); CANNABINOID URINE SCREEN NEGATIVE (NEGATIVE); METHADONE URINE SCREEN NEGATIVE (NEGATIVE); OPIATES URINE SCREEN NEGATIVE (NEGATIVE); PHENCYCLIDINE URINE SCREEN NEGATIVE (NEGATIVE)
[2020-04-28 20:00] VITALS: BP 135/74
[2020-04-28] MEDS: KETOROLAC 30MG/ML VIAL IV PRN (20:04)
[2020-04-28] MEDS: AMLODIPINE 5MG TABLET PO SCH (20:26)
[2020-04-29] VITALS: BP 143/92
[2020-04-29] MEDS: KETOROLAC 30MG/ML VIAL IV PRN (02:04)
[2020-04-29 04:00] VITALS: BP 138/82
[2020-04-29 06:51] LABS: CHLORIDE 105 mEq/L (98-107)
[2020-04-29 06:58] LABS: LDL CHOLESTEROL 92 mg/dL (5-100)
[2020-04-29 06:59] LABS: HDL CHOLESTEROL 51 mg/dL (40-59)
[2020-04-29 07:30] VITALS: BP 122/76
[2020-04-29] MEDS: LOSARTAN POTASSIUM 100 MG TABLET PO SCH (08:09)
[2020-04-29] MEDS: ASPIRIN 81MG TABLET PO SCH (08:09)
[2020-04-29] MEDS: AMLODIPINE 5MG TABLET PO SCH (08:09)
[2020-04-29] MEDS: FUROSEMIDE 40MG/4ML VIAL IVP SCH (08:09)
[2020-04-29] MEDS: ENOXAPARIN 30MG/0.3ML SYR SUBCUT SCH (08:10)
[2020-04-29 09:58] LABS: BASOPHILS % 0.5 % (0.0-2.0); EOSINOPHILS % 5.1 % (0.0-5.0); HEMATOCRIT. 35.7 % (36.0-48.0); HEMOGLOBIN. 12.1 g/dL (12.0-16.0); LYMPHOCYTES % 24.7 % (20.0-50.0); MEAN CORPUSCULAR HEMOGLOBIN 27.1 pg (28.0-32.0); MEAN CORPUSCULAR VOLUME 80.1 fL (81.0-99.0); MEAN PLATELET VOLUME 8.1 fl (7.4-10.4); MONOCYTES % 7.8 % (2.0-8.0); NEUTROPHILS % 61.9 % (40.0-76.0); PLATELET 155 x1000/uL (130-400); RED BLOOD CELL COUNT 4.45 mill/uL (4.2-5.4); RED CELL DISTRIBUTION WIDTH 20.4 % (11.6-14.6)
[2020-04-29 11:30] VITALS: BP 122/68
[2020-04-29 13:39] VITALS: BP 122/72
== END 2020-04-29 14:47 | disposition home or self-care (01) | DRG 203 ==
LOC: ER 04:25 → 6WST 07:00 → ENRESERV 07:41
PROVIDERS: ADMIT Internal Medicine; ATTEND Internal Medicine
DX: M94.0 Chondrocostal junction syndrome [Tietze] (principal); I11.0 Hypertensive heart disease with heart failure; F10.10 Alcohol abuse, uncomplicated; G40.909 Epilepsy, unspecified, not intractable, without status epilepticus; I25.10 Atherosclerotic heart disease of native coronary artery without angina pectoris; I50.23 Acute on chronic systolic (congestive) heart failure; E87.8 Other disorders of electrolyte and fluid balance, not elsewhere classified; E11.9 Type 2 diabetes mellitus without complications; E66.01 Morbid (severe) obesity due to excess calories; E78.00 Pure hypercholesterolemia, unspecified; E78.5 Hyperlipidemia, unspecified; F14.10 Cocaine abuse, uncomplicated; F17.210 Nicotine dependence, cigarettes, uncomplicated; I34.0 Nonrheumatic mitral (valve) insufficiency; R07.89 Other chest pain; Z60.2 Problems related to living alone; I42.0 Dilated cardiomyopathy; I42.8 Other cardiomyopathies; I42.7 Cardiomyopathy due to drug and external agent; Z68.38 Body mass index [BMI] 38.0-38.9, adult; I25.2 Old myocardial infarction; Z59.0 Homelessness; Z91.19 Patient's noncompliance with other medical treatment and regimen; Z79.899 Other long term (current) drug therapy; Z79.82 Long term (current) use of aspirin; Z71.3 Dietary counseling and surveillance; Z71.6 Tobacco abuse counseling; Z71.51 Drug abuse counseling and surveillance of drug abuser; J44.9 Chronic obstructive pulmonary disease, unspecified
CPT/HCPCS: 36415; 71045; 80048; 80053; 80061; 80305; 82550; 82553; 83735; 83880; 84484; 85025; 93005; 93306; 99285; J1650; J1885; J1940; J2270

== ENCOUNTER 2020-05-18 07:04 | Inpatient (IN) | payer MEDICAID ==
[~2020-05-18] VITALS: Ht 175.3 cm; Wt 129.7 kg
[~2020-05-18 07:04] MED LIST changes: +CARV12.545 MT; +LOSA100T3 PO; -LOSA50TA3 PO
[2020-05-18] MEDS ORDERED: FUROSEMIDE 20MG/2ML VIAL IVP ONE (08:00)
[2020-05-18 08:50] LABS: BASOPHILS % 0.6 % (0.0-2.0); EOSINOPHILS % 5.3 % (0.0-5.0); HEMATOCRIT. 32.7 % (36.0-48.0); HEMOGLOBIN. 11.1 g/dL (12.0-16.0); LYMPHOCYTES % 25.6 % (20.0-50.0); MEAN CORPUSCULAR HEMOGLOBIN 27.7 pg (28.0-32.0); MEAN CORPUSCULAR VOLUME 81.8 fL (81.0-99.0); MEAN PLATELET VOLUME 9.4 fl (7.4-10.4); MONOCYTES % 7.8 % (2.0-8.0); NEUTROPHILS % 60.7 % (40.0-76.0); PLATELET 177 x1000/uL (130-400); RED CELL DISTRIBUTION WIDTH 20.4 % (11.6-14.6)
[2020-05-18 09:13] LABS: CHLORIDE 107 mEq/L (98-107)
[2020-05-18 12:45] VITALS: BP 148/81
[2020-05-18] MEDS ORDERED: IPRATROPIUM/ALBUTEROL 0.5-3(2.5)MG/3ML NEB HHN PRN (13:00)
[2020-05-18] MEDS ORDERED: ONDANSETRON HCL 4MG/2ML INJ IV PRN (13:00)
[2020-05-18] MEDS ORDERED: ACETAMINOPHEN 325MG TABLET PO PRN (13:00)
[2020-05-18 13:09] VITALS: BP 148/81
[2020-05-18] MEDS: FUROSEMIDE 40MG/4ML VIAL IVP SCH ×2 (13:33→16:58)
[2020-05-18] MEDS: LOSARTAN POTASSIUM 100 MG TABLET PO SCH (13:33)
[2020-05-18 16:00] VITALS: BP 143/90
[2020-05-18 19:54] LABS: *AMPHETAMINES SCREEN URINE NEGATIVE (NEGATIVE)
[2020-05-18 19:55] LABS: *BARBITURATES SCREEN URINE NEGATIVE (NEGATIVE); *BENZODIAZEPINES SCREEN URINE NEGATIVE (NEGATIVE); METHADONE URINE SCREEN NEGATIVE (NEGATIVE); OPIATES URINE SCREEN NEGATIVE (NEGATIVE); PHENCYCLIDINE URINE SCREEN NEGATIVE (NEGATIVE)
[2020-05-18 19:56] LABS: CANNABINOID URINE SCREEN NEGATIVE (NEGATIVE)
[2020-05-18 20:03] LABS: *COCAINE SCREEN URINE PRESUMTIVE POSITIVE (NEGATIVE)
[2020-05-18] MEDS: ENOXAPARIN 30MG/0.3ML SYR SUBCUT SCH (20:25)
[2020-05-19] VITALS: BP 115/66
[2020-05-19 04:00] VITALS: BP 126/67
[2020-05-19] MEDS: FUROSEMIDE 40MG/4ML VIAL IVP SCH ×2 (06:20→16:51)
[2020-05-19 06:52] LABS: CHLORIDE 102 mEq/L (98-107)
[2020-05-19 08:00] VITALS: BP 123/79
[2020-05-19] MEDS: LOSARTAN POTASSIUM 100 MG TABLET PO SCH (08:29)
[2020-05-19] MEDS: ENOXAPARIN 30MG/0.3ML SYR SUBCUT SCH (08:35)
[2020-05-19 12:00] VITALS: BP 124/86
[2020-05-19] MEDS ORDERED: POTASSIUM CHLORIDE 20MEQ TABLET SR PO NR (12:30)
[2020-05-19 16:00] VITALS: BP 119/77
[2020-05-19 20:00] VITALS: BP 111/54
[2020-05-19] MEDS: ENOXAPARIN 40MG/0.4ML SYR SUBCUT SCH (20:28)
[2020-05-20] VITALS: BP 101/56
[2020-05-20 04:00] VITALS: BP 126/63
[2020-05-20] MEDS: FUROSEMIDE 40MG/4ML VIAL IVP SCH (06:38)
[2020-05-20 08:00] VITALS: BP 129/55
[2020-05-20] MEDS ORDERED: POTA20TA82 MT (08:39)
[2020-05-20] MEDS ORDERED: LOSA100T3 PO (08:39)
[2020-05-20] MEDS ORDERED: FURO-151 MT (08:39)
[2020-05-20] MEDS ORDERED: ALBU18HF2 IH (08:39)
[2020-05-20] MEDS ORDERED: FLUT1DIS3 INH (08:39)
[2020-05-20] MEDS ORDERED: ASPI-1160 PO (08:39)
[2020-05-20] MEDS ORDERED: CARV12.545 MT (08:39)
[2020-05-20] MEDS: ENOXAPARIN 40MG/0.4ML SYR SUBCUT SCH ×2 (08:47→20:58)
[2020-05-20] MEDS: POTASSIUM CHLORIDE 20MEQ TABLET SR PO SCH (08:47)
[2020-05-20] MEDS: LOSARTAN POTASSIUM 100 MG TABLET PO SCH (08:47)
[2020-05-20 12:00] VITALS: BP 113/60
[2020-05-20 16:00] VITALS: BP 109/54
[2020-05-20] MEDS: FUROSEMIDE 100MG/10ML VIAL IVP SCH (16:49)
[2020-05-21] VITALS: BP 111/75
[2020-05-21 04:00] VITALS: BP 98/56
[2020-05-21] MEDS: FUROSEMIDE 100MG/10ML VIAL IVP SCH (06:44)
[2020-05-21 08:00] VITALS: BP 106/79
[2020-05-21] MEDS: ENOXAPARIN 40MG/0.4ML SYR SUBCUT SCH (08:56)
[2020-05-21] MEDS: POTASSIUM CHLORIDE 20MEQ TABLET SR PO SCH (08:56)
[2020-05-21] MEDS: LOSARTAN POTASSIUM 100 MG TABLET PO SCH (08:56)
[2020-05-21 12:02] VITALS: BP 106/79
== END 2020-05-21 12:30 | disposition home or self-care (01) | DRG 199 ==
LOC: ER 07:18 → 5WST 09:20 → ENRESERV 11:33
PROVIDERS: ADMIT Internal Medicine; ATTEND Internal Medicine
DX: I16.0 Hypertensive urgency (principal); I11.0 Hypertensive heart disease with heart failure; J68.0 Bronchitis and pneumonitis due to chemicals, gases, fumes and vapors; I50.23 Acute on chronic systolic (congestive) heart failure; I42.9 Cardiomyopathy, unspecified; D64.9 Anemia, unspecified; E66.01 Morbid (severe) obesity due to excess calories; J44.9 Chronic obstructive pulmonary disease, unspecified; J45.909 Unspecified asthma, uncomplicated; G40.909 Epilepsy, unspecified, not intractable, without status epilepticus; F14.90 Cocaine use, unspecified, uncomplicated; F17.210 Nicotine dependence, cigarettes, uncomplicated; Z79.899 Other long term (current) drug therapy; Z71.3 Dietary counseling and surveillance; Z68.41 Body mass index [BMI] 40.0-44.9, adult
CPT/HCPCS: 36415; 71045; 80048; 80053; 80305; 82962; 83880; 84484; 85025; 93005; 99285; J1650; J1940

== ENCOUNTER 2020-09-30 04:59 | Inpatient (IN) | payer MEDICAID, OTHER ==
[~2020-09-30] VITALS: Ht 170.2 cm; Wt 99.8 kg
[~2020-09-30 04:59] MED LIST changes: +FLUT1DIS3 INH; +FURO-151 MT; -FURO40TA5 MT; +POTA20TA82 MT
[2020-09-30] MEDS ORDERED: SODIUM CHLORIDE 0.9% 1,000 ML IV ONE (05:30)
[2020-09-30 07:12] LABS: CHLORIDE 106 mEq/L (98-107)
[2020-09-30 07:16] LABS: BASOPHILS % 0.4 % (0.0-2.0); EOSINOPHILS % 6.1 % (0.0-5.0); ETHANOL BLOOD < 10 mg/dL; HEMATOCRIT. 34.2 % (36.0-48.0); HEMOGLOBIN. 11.6 g/dL (12.0-16.0); LYMPHOCYTES % 30.2 % (20.0-50.0); MEAN CORPUSCULAR HEMOGLOBIN 27.8 pg (28.0-32.0); MEAN CORPUSCULAR VOLUME 81.9 fL (81.0-99.0); MEAN PLATELET VOLUME 8.9 fl (7.4-10.4); MONOCYTES % 5.3 % (2.0-8.0); PLATELET 206 x1000/uL (130-400); RED BLOOD CELL COUNT 4.18 mill/uL (4.2-5.4); RED CELL DISTRIBUTION WIDTH 17.8 % (11.6-14.6)
[2020-09-30 09:29] LABS: HCG SCREEN NEGATIVE
[2020-09-30] MEDS ORDERED: FUROSEMIDE 20MG/2ML VIAL IVP NR (09:30)
[2020-09-30 12:49] LABS: CLARITY URINE CLEAR (CLEAR); COLOR URINE YELLOW (YELLOW); KETONES URINE NEGATIVE (NEGATIVE); LEUKOCYTE ESTERASE URINE TRACE (NEGATIVE); NITRITE URINE NEGATIVE (NEGATIVE); OCCULT BLOOD URINE NEGATIVE (NEGATIVE); PROTEIN URINE NEGATIVE (NEGATIVE); SPECIFIC GRAVITY URINE 1.007 (1.005-1.030); UROBILINOGEN URINE 0.2 E.U./dL (0.2-1.0)
[2020-09-30 13:40] LABS: *BARBITURATES SCREEN URINE NEGATIVE (NEGATIVE); CANNABINOID URINE SCREEN NEGATIVE (NEGATIVE); OPIATES URINE SCREEN NEGATIVE (NEGATIVE); PHENCYCLIDINE URINE SCREEN NEGATIVE (NEGATIVE)
[2020-09-30 13:42] LABS: *AMPHETAMINES SCREEN URINE NEGATIVE (NEGATIVE); *BENZODIAZEPINES SCREEN URINE NEGATIVE (NEGATIVE); METHADONE URINE SCREEN NEGATIVE (NEGATIVE)
[2020-09-30 13:47] LABS: *COCAINE SCREEN URINE PRESUMTIVE POSITIVE (NEGATIVE)
[2020-09-30] MEDS ORDERED: ONDANSETRON HCL 4MG/2ML INJ IV PRN (14:30)
[2020-09-30] MEDS ORDERED: IPRATROPIUM/ALBUTEROL 0.5-3(2.5)MG/3ML NEB HHN PRN (14:30)
[2020-09-30] MEDS ORDERED: HYDROCODONE/ACETAMINOPHEN 5/325MG TABLET PO PRN (14:30)
[2020-09-30] MEDS ORDERED: ACETAMINOPHEN 325MG TABLET PO PRN ×2 (14:30)
[2020-09-30] MEDS ORDERED: CLONIDINE 0.1MG TABLET PO PRN (14:30)
[2020-09-30] MEDS ORDERED: LORAZEPAM 0.5MG TABLET PO PRN (14:30)
[2020-09-30] MEDS ORDERED: DOCUSATE SODIUM 100MG CAPSULE PO PRN (14:30)
[2020-09-30] MEDS: FUROSEMIDE 40MG/4ML VIAL IVP SCH (15:00)
[2020-09-30] MEDS: LOSARTAN POTASSIUM 25 MG TABLET PO SCH (15:56)
[2020-09-30] MEDS: AMLODIPINE 5MG TABLET PO SCH (15:56)
[2020-09-30] MEDS: ASPIRIN 81MG EC TABLET PO SCH (15:56)
[2020-09-30 22:00] VITALS: BP 128/66
[2020-10-01] VITALS: BP 140/82
[2020-10-01] MEDS: LEVETIRACETAM 250MG TABLET PO SCH ×2 (01:07→08:48)
[2020-10-01 04:00] VITALS: BP 140/90
[2020-10-01 08:00] VITALS: BP 162/76
[2020-10-01] MEDS: FUROSEMIDE 40MG/4ML VIAL IVP SCH (08:47)
[2020-10-01] MEDS: AMLODIPINE 5MG TABLET PO SCH (08:47)
[2020-10-01] MEDS: ASPIRIN 81MG EC TABLET PO SCH (08:47)
[2020-10-01] MEDS: LOSARTAN POTASSIUM 25 MG TABLET PO SCH (08:47)
[2020-10-01] MEDS ORDERED: POTASSIUM CHLORIDE 20MEQ TABLET SR PO SCH (09:30)
[2020-10-01 12:00] VITALS: BP 156/73
[2020-10-01] MEDS ORDERED: AMLODIPINE 5MG TABLET PO SCH (14:45)
[2020-10-01 16:00] VITALS: BP 129/90
[2020-10-02 07:53] LABS: CHLORIDE 101 mEq/L (98-107)
[2020-10-02 08:00] VITALS: BP 146/92
[2020-10-02 08:01] LABS: TOTAL IRON BINDING CAPACITY 363 ug/dL (250-450)
[2020-10-02 08:12] LABS: FOLIC ACID (FOLATE) SERUM 17.7 ng/mL (>5.38)
[2020-10-02 08:47] LABS: BASOPHILS % 0.3 % (0.0-2.0); EOSINOPHILS % 4.7 % (0.0-5.0); HEMATOCRIT. 38.6 % (36.0-48.0); HEMOGLOBIN. 12.7 g/dL (12.0-16.0); LYMPHOCYTES % 20.8 % (20.0-50.0); MEAN CORPUSCULAR VOLUME 82.1 fL (81.0-99.0); MEAN PLATELET VOLUME 8.6 fl (7.4-10.4); MONOCYTES % 8.2 % (2.0-8.0); PLATELET 193 x1000/uL (130-400); RED CELL DISTRIBUTION WIDTH 18.2 % (11.6-14.6)
[2020-10-02] MEDS: FUROSEMIDE 40MG/4ML VIAL IVP SCH ×2 (09:00→09:34)
[2020-10-02] MEDS: ASPIRIN 81MG EC TABLET PO SCH (09:34)
[2020-10-02] MEDS: AMLODIPINE 5MG TABLET PO SCH (09:34)
[2020-10-02] MEDS: LOSARTAN POTASSIUM 50 MG TABLET PO SCH (09:34)
[2020-10-02] MEDS ORDERED: POTASSIUM CHLORIDE 20MEQ TABLET SR PO SCH (10:00)
[2020-10-02] MEDS: FUROSEMIDE 40MG TABLET PO SCH (10:30)
[2020-10-02 12:00] VITALS: BP 147/79
[2020-10-02 16:00] VITALS: BP 117/80
[2020-10-03] VITALS: BP 127/81
[2020-10-03 07:36] LABS: BASOPHILS % 0.3 % (0.0-2.0); EOSINOPHILS % 3.9 % (0.0-5.0); HEMOGLOBIN. 13.1 g/dL (12.0-16.0); LYMPHOCYTES % 22.5 % (20.0-50.0); MEAN CORPUSCULAR HEMOGLOBIN 27.5 pg (28.0-32.0); MEAN CORPUSCULAR VOLUME 81.7 fL (81.0-99.0); MEAN PLATELET VOLUME 8.6 fl (7.4-10.4); MONOCYTES % 10.3 % (2.0-8.0); PLATELET 188 x1000/uL (130-400); RED BLOOD CELL COUNT 4.77 mill/uL (4.2-5.4); RED CELL DISTRIBUTION WIDTH 18.2 % (11.6-14.6)
[2020-10-03 07:41] LABS: CHLORIDE 103 mEq/L (98-107)
[2020-10-03 08:00] VITALS: BP 129/76
[2020-10-03] MEDS: LOSARTAN POTASSIUM 50 MG TABLET PO SCH (08:28)
[2020-10-03] MEDS: FUROSEMIDE 40MG TABLET PO SCH (08:28)
[2020-10-03] MEDS: AMLODIPINE 5MG TABLET PO SCH (08:28)
[2020-10-03] MEDS: ASPIRIN 81MG EC TABLET PO SCH (08:28)
[2020-10-03 12:20] VITALS: BP 109/74
[2020-10-03] MEDS ORDERED: LOSA50TA3 PO (14:00)
[2020-10-03] MEDS ORDERED: AMLO5TAB88 PO (14:00)
[2020-10-03 16:11] VITALS: BP 109/74
[2020-10-03] MEDS ORDERED: CARVEDILOL 3.125 MG TABLET PO SCH (21:00)
== END 2020-10-03 16:46 | disposition home or self-care (01) | DRG 816 ==
LOC: ER 04:59 → 5WST 14:08 → ENRESERV 20:47
PROVIDERS: ADMIT Internal Medicine; ATTEND Internal Medicine
DX: T65.891A Toxic effect of other specified substances, accidental (unintentional), initial encounter (principal); I11.0 Hypertensive heart disease with heart failure; Z79.899 Other long term (current) drug therapy; F17.210 Nicotine dependence, cigarettes, uncomplicated; J96.00 Acute respiratory failure, unspecified whether with hypoxia or hypercapnia; I16.1 Hypertensive emergency; F14.129 Cocaine abuse with intoxication, unspecified; J68.0 Bronchitis and pneumonitis due to chemicals, gases, fumes and vapors; I50.23 Acute on chronic systolic (congestive) heart failure; D64.9 Anemia, unspecified; G40.909 Epilepsy, unspecified, not intractable, without status epilepticus; I42.0 Dilated cardiomyopathy; F10.129 Alcohol abuse with intoxication, unspecified; F15.129 Other stimulant abuse with intoxication, unspecified; Y90.9 Presence of alcohol in blood, level not specified; E87.6 Hypokalemia; I25.10 Atherosclerotic heart disease of native coronary artery without angina pectoris; Y92.89 Other specified places as the place of occurrence of the external cause; Z79.51 Long term (current) use of inhaled steroids; I25.2 Old myocardial infarction; Z91.19 Patient's noncompliance with other medical treatment and regimen; F19.90 Other psychoactive substance use, unspecified, uncomplicated
CPT/HCPCS: 36415; 71045; 80048; 80053; 80061; 80305; 80320; 81003; 82607; 82728; 82746; 83540; 83550; 83735; 83880; 84484; 84703; 85025; 93005; 93306; 99285; J1940; J7030; G0480

== ENCOUNTER 2021-01-30 04:24 | Inpatient (IN) | payer MEDICAID, OTHER ==
[~2021-01-30] VITALS: Ht 162.6 cm; Wt 130.7 kg
[~2021-01-30 04:24] MED LIST changes: +AMLO5TAB88 PO; -CARV12.545 MT; -LOSA100T3 PO; +LOSA50TA3 PO
[2021-01-30] MEDS ORDERED: ASPIRIN 81MG TABLET PO ONE (05:30)
[2021-01-30] MEDS ORDERED: NITROGLYCERIN 0.4MG TABLET SL SL PRN (05:30)
[2021-01-30 05:58] LABS: CHLORIDE 105 mEq/L (98-107)
[2021-01-30 06:00] LABS: BASOPHILS % 0.5 % (0.0-2.0); EOSINOPHILS % 4.3 % (0.0-5.0); HEMATOCRIT. 34.6 % (36.0-48.0); HEMOGLOBIN. 11.8 g/dL (12.0-16.0); LYMPHOCYTES % 37.4 % (20.0-50.0); MEAN CORPUSCULAR HEMOGLOBIN 27.5 pg (28.0-32.0); MEAN CORPUSCULAR VOLUME 80.3 fL (81.0-99.0); MEAN PLATELET VOLUME 8.3 fl (7.4-10.4); MONOCYTES % 12.5 % (2.0-8.0); NEUTROPHILS % 45.3 % (40.0-76.0); PLATELET 182 x1000/uL (130-400); RED CELL DISTRIBUTION WIDTH 16.1 % (11.6-14.6)
[2021-01-30] MEDS ORDERED: FUROSEMIDE 40MG/4ML VIAL IVP SCH (06:30)
[2021-01-30] MEDS ORDERED: DIPHENHYDRAMINE 25MG CAPSULE PO ONE (07:15)
[2021-01-30] MEDS ORDERED: ACETAMINOPHEN 325MG TABLET PO PRN (12:45)
[2021-01-30] MEDS ORDERED: IPRATROPIUM/ALBUTEROL 0.5-3(2.5)MG/3ML NEB HHN PRN (12:45)
[2021-01-30] MEDS ORDERED: CLONIDINE 0.1MG TABLET PO PRN (12:45)
[2021-01-30] MEDS ORDERED: ONDANSETRON HCL 4MG/2ML INJ IV PRN (12:45)
[2021-01-30] MEDS ORDERED: DIPHENHYDRAMINE 50MG/ML VIAL IV PRN (12:45)
[2021-01-30] MEDS: ENOXAPARIN 40MG/0.4ML SYR SUBCUT SCH (13:08)
[2021-01-30] MEDS ORDERED: AMLODIPINE 5MG TABLET PO SCH (14:00)
[2021-01-30 16:56] VITALS: BP 156/89
[2021-01-30] MEDS: AMLODIPINE 5MG TABLET PO SCH ×2 (18:30→20:43)
[2021-01-30 20:00] VITALS: BP 149/93
[2021-01-30 21:57] LABS: CLARITY URINE CLEAR (CLEAR); COLOR URINE YELLOW (YELLOW); KETONES URINE TRACE (NEGATIVE); LEUKOCYTE ESTERASE URINE 1+ (NEGATIVE); NITRITE URINE NEGATIVE (NEGATIVE); OCCULT BLOOD URINE 1+ (NEGATIVE); PROTEIN URINE NEGATIVE (NEGATIVE); SPECIFIC GRAVITY URINE 1.019 (1.005-1.030); UROBILINOGEN URINE 0.2 E.U./dL (0.2-1.0)
[2021-01-30 22:06] LABS: *AMPHETAMINES SCREEN URINE NEGATIVE (NEGATIVE); *BARBITURATES SCREEN URINE NEGATIVE (NEGATIVE); *BENZODIAZEPINES SCREEN URINE NEGATIVE (NEGATIVE); METHADONE URINE SCREEN NEGATIVE (NEGATIVE)
[2021-01-30 22:07] LABS: CANNABINOID URINE SCREEN NEGATIVE (NEGATIVE); OPIATES URINE SCREEN NEGATIVE (NEGATIVE); PHENCYCLIDINE URINE SCREEN NEGATIVE (NEGATIVE)
[2021-01-30 22:13] LABS: *COCAINE SCREEN URINE PRESUMTIVE POSITIVE (NEGATIVE)
[2021-01-31] VITALS: BP 116/67
[2021-01-31 04:00] VITALS: BP 134/83
[2021-01-31 07:28] LABS: BASOPHILS % 0.5 % (0.0-2.0); EOSINOPHILS % 6.3 % (0.0-5.0); HEMATOCRIT. 33.6 % (36.0-48.0); HEMOGLOBIN. 11.7 g/dL (12.0-16.0); LYMPHOCYTES % 30.1 % (20.0-50.0); MEAN CORPUSCULAR HEMOGLOBIN 27.7 pg (28.0-32.0); MEAN CORPUSCULAR VOLUME 79.9 fL (81.0-99.0); MEAN PLATELET VOLUME 9.1 fl (7.4-10.4); MONOCYTES % 9.8 % (2.0-8.0); NEUTROPHILS % 53.3 % (40.0-76.0); PLATELET 151 x1000/uL (130-400); RED BLOOD CELL COUNT 4.21 mill/uL (4.2-5.4); RED CELL DISTRIBUTION WIDTH 15.9 % (11.6-14.6)
[2021-01-31 07:32] LABS: CHLORIDE 104 mEq/L (98-107)
[2021-01-31 07:41] LABS: LDL CHOLESTEROL 80 mg/dL (5-100)
[2021-01-31 07:44] LABS: HDL CHOLESTEROL 39 mg/dL (40-59)
[2021-01-31 08:00] VITALS: BP 135/80
[2021-01-31] MEDS: AMLODIPINE 5MG TABLET PO SCH ×2 (08:59→20:45)
[2021-01-31 12:00] VITALS: BP 130/82
[2021-01-31] MEDS: ENOXAPARIN 40MG/0.4ML SYR SUBCUT SCH (12:57)
[2021-01-31] MEDS ORDERED: CEFTRIAXONE 1,000 MG in DEXTROSE 5% WATER 50 ML IV SCH (14:00)
[2021-01-31 16:00] VITALS: BP 129/85
[2021-01-31 20:00] VITALS: BP 128/64
[2021-01-31] MEDS: CEFTRIAXONE 1,000 MG in DEXTROSE 5% WATER 50 ML IV SCH (20:31)
[2021-02-01] VITALS: BP 140/69
[2021-02-01 04:00] VITALS: BP 151/87
[2021-02-01] MEDS: AMLODIPINE 5MG TABLET PO SCH ×2 (09:01→20:34)
[2021-02-01] MEDS: ENOXAPARIN 40MG/0.4ML SYR SUBCUT SCH (09:02)
[2021-02-01 09:43] LABS: BASOPHILS % 0.4 % (0.0-2.0); EOSINOPHILS % 4.9 % (0.0-5.0); HEMATOCRIT. 34.6 % (36.0-48.0); HEMOGLOBIN. 12.2 g/dL (12.0-16.0); LYMPHOCYTES % 28.5 % (20.0-50.0); MEAN CORPUSCULAR HEMOGLOBIN 27.9 pg (28.0-32.0); MEAN CORPUSCULAR VOLUME 79.1 fL (81.0-99.0); MEAN PLATELET VOLUME 8.8 fl (7.4-10.4); MONOCYTES % 7.6 % (2.0-8.0); NEUTROPHILS % 58.6 % (40.0-76.0); PLATELET 183 x1000/uL (130-400); RED BLOOD CELL COUNT 4.37 mill/uL (4.2-5.4); RED CELL DISTRIBUTION WIDTH 15.8 % (11.6-14.6)
[2021-02-01 09:47] LABS: CHLORIDE 103 mEq/L (98-107)
[2021-02-01] MEDS ORDERED: NITR100C MT (14:53)
[2021-02-01 16:00] VITALS: BP_SYST 139; BP_DIAS 76; BP_DIAS 79
[2021-02-01 20:00] VITALS: BP 136/76
[2021-02-01] MEDS: CEFTRIAXONE 1,000 MG in DEXTROSE 5% WATER 50 ML IV SCH (20:02)
[2021-02-02] VITALS: BP 131/59
[2021-02-02 04:00] VITALS: BP 128/83
[2021-02-02 08:00] VITALS: BP 116/63
[2021-02-02] MEDS: ENOXAPARIN 40MG/0.4ML SYR SUBCUT SCH (08:58)
[2021-02-02] MEDS: AMLODIPINE 5MG TABLET PO SCH ×2 (08:58→20:01)
[2021-02-02 12:00] VITALS: BP 124/67
[2021-02-02 16:00] VITALS: BP 132/76
[2021-02-02 20:00] VITALS: BP 142/70
[2021-02-02] MEDS: CEFTRIAXONE 1,000 MG in DEXTROSE 5% WATER 50 ML IV SCH (20:01)
[2021-02-03] VITALS: BP 142/74
[2021-02-03 04:00] VITALS: BP 140/70
[2021-02-03 08:00] VITALS: BP 133/69
[2021-02-03] MEDS: AMLODIPINE 5MG TABLET PO SCH ×2 (09:07→21:14)
[2021-02-03] MEDS: ENOXAPARIN 40MG/0.4ML SYR SUBCUT SCH (09:08)
[2021-02-03 12:00] VITALS: BP 140/80
[2021-02-03 16:00] VITALS: BP 126/74
[2021-02-03 20:00] VITALS: BP 138/82
[2021-02-03] MEDS: CEFTRIAXONE 1,000 MG in DEXTROSE 5% WATER 50 ML IV SCH (21:13)
[2021-02-04] VITALS: BP 126/65
[2021-02-04 04:00] VITALS: BP 123/69
[2021-02-04 08:51] VITALS: BP 121/68
[2021-02-04] MEDS: ENOXAPARIN 40MG/0.4ML SYR SUBCUT SCH (09:00)
[2021-02-04] MEDS: AMLODIPINE 5MG TABLET PO SCH (09:12)
[2021-02-04 10:36] VITALS: BP 121/85
== END 2021-02-04 11:18 | disposition home or self-care (01) | DRG 816 ==
LOC: ER 04:24 → 8WST 11:41 → ENRESERV 13:02
PROVIDERS: ADMIT Internal Medicine; ATTEND Internal Medicine
DX: T40.5X1A Poisoning by cocaine, accidental (unintentional), initial encounter (principal); I42.0 Dilated cardiomyopathy; I11.0 Hypertensive heart disease with heart failure; I50.9 Heart failure, unspecified; Z68.42 Body mass index [BMI] 45.0-49.9, adult; D64.9 Anemia, unspecified; E11.9 Type 2 diabetes mellitus without complications; R07.89 Other chest pain; I25.10 Atherosclerotic heart disease of native coronary artery without angina pectoris; F14.90 Cocaine use, unspecified, uncomplicated; E66.9 Obesity, unspecified; G40.909 Epilepsy, unspecified, not intractable, without status epilepticus; I25.2 Old myocardial infarction; J44.9 Chronic obstructive pulmonary disease, unspecified; N39.0 Urinary tract infection, site not specified; Z91.14 Patient's other noncompliance with medication regimen; Z79.899 Other long term (current) drug therapy; Z90.49 Acquired absence of other specified parts of digestive tract; Z82.49 Family history of ischemic heart disease and other diseases of the circulatory system; Z83.3 Family history of diabetes mellitus; Z87.891 Personal history of nicotine dependence; Z59.0 Homelessness; Z71.51 Drug abuse counseling and surveillance of drug abuser
CPT/HCPCS: 36415; 71045; 80048; 80053; 80061; 80305; 81003; 83880; 84443; 84484; 85025; 87077; 87186; 93005; 93306; 93970; 99285; C1893; J0696; J1650; J1940; J7060; Q0163